=== PATIENT | female | born 1990 | race Caucasian/White ===

== ENCOUNTER 2016-06-20 19:38 | Emergency (ER) | payer MEDICAID ==
--- NOTE | 2016-06-20 22:37 | ER Document Report ---
ED Neck/Back Problem - General Mode of Arrival: Ambulatory Information source: Patient TRAVEL OUTSIDE OF THE [place] IN LAST 30 DAYS: No - HPI Patient complains to provider of: Pain, Lower back Associated symptoms: Other - See above - General Chief Complaint: Low Back Pain Stated Complaint: low back pain Notes: Patient is a 26 year old female who presents to the emergency department complaining of low back pain onset 2 days ago. Patient states that she believes she pulled a muscle when moving a dresser. Patient states the pain began the day after the event and is constant sometimes radiating into her legs. Patient states she has been taking Advil and Tylenol at home with no relief. Patient has a follow up appointment with her PCP on Tuesday. Patient denies difficulty urinating or defecating, and denies . Patient also complains of a rash on her back and chest. PCP: [facility] (JADA MACK) - Related Data Allergies/Adverse Reactions: amoxicillin [Amoxicillin] Allergy (Unknown, Verified 02/08/16 13:03) rash/hives Penicillins Allergy (Unknown, Verified 02/08/16 13:03) rash/hives Past Medical History - General Information source: Patient - Social History Smoking Status: Unknown if Ever Smoked Family History: Reviewed & Not Pertinent Skin Medical History: Reports Hx MRSA Past Surgical History: Reports: Hx CholecystectomyComment Only: Hx Hysterectomy - SERUM HCG NEGATIVE - Immunizations Immunizations up to date: Yes Hx Diphtheria, Pertussis, Tetanus Vaccination: Yes - 04/2013 Review of Systems - Review of Systems Constitutional: No symptoms reported EENT: No symptoms reported Cardiovascular: No symptoms reported Respiratory: No symptoms reported Gastrointestinal: No symptoms reported Genitourinary: No symptoms reported Female Genitourinary: No symptoms reported Musculoskeletal: See HPI, Back pain Skin: See HPI, Rash Hematologic/Lymphatic: No symptoms reported Neurological/Psychological: No symptoms reported -: Yes All other systems reviewed and negative Physical Exam - Vital signs Interpretation: Normal - General General appearance: Appears well, Alert - HEENT Head: Normocephalic, Atraumatic - Respiratory Respiratory status: No respiratory distress Chest status: Nontender Breath sounds: Normal Chest palpation: Normal - Cardiovascular Rhythm: Regular Heart sounds: Normal auscultation Murmur: No - Abdominal Inspection: Normal Distension: No distension Bowel sounds: Normal Tenderness: Nontender Organomegaly: No organomegaly - Extremities General upper extremity: Normal inspection General lower extremity: Normal inspection - Neurological Neuro grossly intact: Yes Cognition: Normal Orientation: AAOx4 Valdez Coma Scale Eye Opening: Spontaneous [place] Coma Scale Verbal: Oriented [place] Coma Scale Motor: Obeys Commands Valdez Coma Scale Total: 15 Speech: Normal - Psychological Associated symptoms: Normal affect, Normal mood - Skin Skin Temperature: Warm Skin Moisture: Dry Skin Color: Normal Skin irregularity: Rash - 3 well circumsiced, round rashes on back, 1 on left chest, with centralized clearing. No secondary infection, no cellulitis Course - Re-evaluation Re-evalutation: 06/21/16 03:32 presents emergency per chief plain low back pain and rash. She said a few days ago she was moving a dresser fell a pull in her low back will Morning with low back pain. She states she's been laying around more than active although she did walk here tonight on her own accord. She denies any numbness tingling weakness loss of bowel or bladder function. Also states she no sore rash on her back. On examination she has no midline tenderness she has paralumbar muscular skeletal tenderness negative bilateral straight leg raise test. Good pulses and perfusion no acute abdominal findings and rash on her back consistent with ringworm. Patient discharged with Robaxin Bactroban cream follow primary care physician and discussed reasons Fredia return sooner (SUNNI ESQUEDA) - Vital Signs Vital signs: Temp Pulse Resp BP Pulse Ox 97.6 F 71 16 120/89 H 96 06/20/16 23:09 06/20/16 23:09 06/20/16 23:09 06/20/16 23:09 06/20/16 23:09 Discharge - Discharge Clinical Impression: low back strain, Ringworm Condition: Stable Disposition: HOME, SELF-CARE Additional Instructions: Low Back Pain Three out of every four people will have an episode of disabling back pain during their lifetime. Most commonly the pain is due to straining of the muscles and ligaments in the low back. Usual treatment includes: (1) Rest on a firm surface. Avoid lying on your stomach. (2) Ice pack the painful area. After a few days, gentle heat may be used intermittently to relax the area, or ice packs can be continued. (3) Medication may be needed -- muscle relaxers and antiinflammatory medicines are commonly used. (4) As the back improves, exercises are prescribed to strengthen the back and abdominal muscles. Your doctor will advise you on the proper care for your back at each stage in your recovery. You may be better in a few days -- or healing may take several weeks. If new symptoms of a "herniated disc" (radiation of pain, numbness, or tingling down the back of the leg or weakness in the leg) occur, you should be re-examined. Further testing may be necessary. Ringworm (Tinea Corporis) You have a fungal infection of the skin, called tinea corporis. This is sometimes called "ringworm." because it tends forms an enlarging ring on the skin. The infection results from exposure to another person or an animal carrying the fungus, but it is only mildly contagious. There can be mild itching , or sometimes no symptoms at all. The infection is usually treated with antifungal cream. This is applied two or three times daily. Healing may take two or three weeks. Occasionally, oral medication is necessary, for example, when the infection if very large, or if fungus involves the scalp or nails. Fingernail or toenail infections are very difficult to eradicate, often requiring many weeks of treatment. Return for re-examination if your symptoms change significantly -- for example, if you develop fever or chills, red streaks, increasing tenderness, swelling, or blisters at the infection site. Prescriptions: Methocarbamol [Robaxin 500 mg Tablet] 500 mg PO BID #12 tablet Mupirocin Calcium [Bactroban 2% Cream 15 gm] 1 applic TP DAILY PRN #1 tube PRN Reason: Referrals: MARCELO CANTRELL MD [Primary Care Provider] - Follow up as needed Stan Attestation: 06/22/16 21:16 i personally performed the services described in the documentation, reviewed the documentation recorded i described in my presence and accurately and completely records my words and actions (SUNNI ESQUEDA) Halimaibniall Documentation - Scribe Written by Stan:: stan Randall, 06/21/16, 0012 acting as scribe for :: Cory
[2016-06-20 23:12] VITALS: BP 120/89
== END 2016-06-20 23:09 | disposition home or self-care (01) ==
LOC: ER 19:38
DX: S39.012A Strain of muscle, fascia and tendon of lower back, initial encounter (principal); X58.XXXA Exposure to other specified factors, initial encounter; B35.9 Dermatophytosis, unspecified; Z88.0 Allergy status to penicillin; Z86.14 Personal history of Methicillin resistant Staphylococcus aureus infection
CPT/HCPCS: 99282

== ENCOUNTER 2017-03-16 18:55 | Emergency (ER) | payer MEDICAID ==
--- NOTE | 2017-03-16 19:58 | ER Document Report ---
ED Medical Screen (RME) - General Chief Complaint: Dizziness Stated Complaint: DIZZINESS,HEADACHE Time Seen by Provider: 03/16/17 19:54 Mode of Arrival: Ambulatory Information source: Patient Notes: Pt is a 27 year old female who presents to the ER today for lightheadedness, headaches, nausea and vomiting. States she hasn't had a menstrual cycle since january. She may be . She hasn't taken any tests. TRAVEL OUTSIDE OF THE [place] IN LAST 30 DAYS: No - Related Data Allergies/Adverse Reactions: amoxicillin [Amoxicillin] Allergy (Unknown, Verified 02/08/16 13:03) rash/hives Penicillins Allergy (Unknown, Verified 02/08/16 13:03) rash/hives Past Medical History - General Information source: Patient Pulmonary Medical History: Denies: Hx Tuberculosis Neurological Medical History: Denies: Hx Seizures Renal/ Medical History: Denies: Hx Peritoneal Dialysis Skin Medical History: Reports Hx MRSA Past Surgical History: Reports: Hx CholecystectomyComment Only: Hx Hysterectomy - SERUM HCG NEGATIVE - Immunizations Immunizations up to date: Yes Hx Diphtheria, Pertussis, Tetanus Vaccination: Yes - 04/2013 Review of Systems - Review of Systems Gastrointestinal: See HPI Neurological/Psychological: See HPI Physical Exam - Vital signs Vitals: Temp Pulse Resp BP Pulse Ox 98.0 F 86 18 137/89 H 96 03/16/17 19:03 03/16/17 19:03 03/16/17 19:03 03/16/17 19:03 03/16/17 19:03 - Notes Notes: General: well appearing, NAD Course - Vital Signs Vital signs: Temp Pulse Resp BP Pulse Ox 98.0 F 86 18 137/89 H 96 03/16/17 19:03 03/16/17 19:03 03/16/17 19:03 03/16/17 19:03 03/16/17 19:03
[2017-03-16 20:46] LABS: ABSOLUTE EOSINOPHILS # (AUTO) 0.2 10^3/uL (0.0-0.6); ABSOLUTE LYMPHOCYTES (AUTO) 2.5 10^3/uL (0.5-4.7); ABSOLUTE MONOCYTES (AUTO) 0.6 10^3/uL (0.1-1.4); BASOPHILS % (AUTO) 0.4 % (0-2); EOSINOPHILS % (AUTO) 1.7 % (0-6); HEMOGLOBIN 12.9 g/dL (12.0-15.5); MEAN CORPUSCULAR HEMOGLOBIN 29.5 pg (27.0-33.4); MEAN CORPUSCULAR HGB CONC 33.1 g/dL (32.0-36.0); MEAN CORPUSCULAR VOLUME 89 fl (80-97); MONOCYTES % (AUTO) 5.2 % (3-13); PLATELET COUNT 255 10^3/uL (150-450); RED BLOOD COUNT 4.39 10^6/uL (3.72-5.28); RED CELL DISTRIBUTION WIDTH 13.8 % (11.5-14.0); SEGMENTED NEUTROPHILS % (AUTO) 70.7 % (42-78); TOTAL CELLS COUNTED % (AUTO) 100 %; WHITE BLOOD COUNT 11.3 10^3/uL (4.0-10.5)
[2017-03-16 20:52] LABS: APPEARANCE,URINE CLOUDY; BILIRUBIN,URINE NEGATIVE (NEGATIVE); COLOR,URINE YELLOW; GLUCOSE, URINE NEGATIVE (NEGATIVE); KETONES,URINE NEGATIVE (NEGATIVE); LEUKOCYTE ESTERASE,URINE TRACE (NEGATIVE); NITRITE,URINE NEGATIVE (NEGATIVE); PROTEIN,URINE NEGATIVE (NEGATIVE); URINE SPECIFIC GRAVITY 1.028
[2017-03-16 21:16] LABS: ALANINE AMINOTRANSFERASE 30 U/L (9-52); ALBUMIN 4.4 g/dL (3.5-5.0); ALKALINE PHOSPHATASE 93 U/L (38-126); ANION GAP 11 (5-19); ASPARTATE AMINO TRANSFERASE 19 U/L (14-36); BILIRUBIN,DIRECT 0.1 mg/dL (0.0-0.4); BILIRUBIN,TOTAL 0.1 mg/dL (0.2-1.3); BLOOD UREA NITROGEN 8 mg/dL (7-20); CALCIUM 10.1 mg/dL (8.4-10.2); CARBON DIOXIDE 27 mmol/L (22-30); CHLORIDE 105 mmol/L (98-107); GLUCOSE 91 mg/dL (75-110); POTASSIUM 3.7 mmol/L (3.6-5.0); TOTAL PROTEIN 7.8 g/dL (6.3-8.2)
[2017-03-16] MEDS ORDERED: ACETAMINOPHEN 325 MG TABLET PO ONE (22:43)
[2017-03-16] MEDS ORDERED: NITROFURANTOIN MONOHYD/M-CRYST 100 MG CAPSULE PO ONE (22:43)
--- NOTE | 2017-03-16 22:44 | ER Document Report ---
HPI - HPI Patient complains to provider of: Abdominal pain, dizziness Onset: Other - 3 days Onset/Duration: Persistent Quality of pain: Achy Pain Level: 4 Context: Patient presents complaining of lower pelvic pain for the past 3 days. Patient reports headache with dizziness as well as nausea and vomiting for the past 2 days. Patient states she is vomited 6 times today. Patient denies any fever, diarrhea or urinary symptoms. Patient does state that she is 2 months late on her menstrual cycle. Associated Symptoms: Headache, Nausea, Vomiting, Other - Abdominal pain. denies : Nonproductive cough, Productive cough, Fever Exacerbated by: Denies Relieved by: Denies Similar symptoms previously: No Recently seen / treated by doctor: No - ROS ROS below otherwise negative: Yes Systems Reviewed and Negative: Yes All other systems reviewed and negative - CONSTITUTIONAL Constitutional: DENIES: Fever, Chills - NEURO Neurology: REPORTS: Headache, Dizzinesss / Vertigo - RESPIRATORY Respiratory: DENIES: Coughing - GASTROINTESTINAL Gastrointestinal: REPORTS: Abdominal Pain, Nausea, Patient vomiting. DENIES: Diarrhea - URINARY Urinary: DENIES: Dysuria, Urgency, Frequency - REPRODUCTIVE Reproductive: DENIES: : - MUSCULOSKELETAL Musculoskeletal: DENIES: Back Pain - DERM Skin Color: Normal Skin Problems: None Past Medical History - General Information source: Patient Last Menstrual Period: 2 months ago - Social History Smoking Status: Never Smoker Frequency of alcohol use: None Drug Abuse: None Occupation: None Lives with: Family Family History: Reviewed & Not Pertinent - Medical History Medical History: Negative Pulmonary Medical History: Denies: Hx Tuberculosis Neurological Medical History: Denies: Hx Seizures Renal/ Medical History: Denies: Hx Peritoneal Dialysis Skin Medical History: Reports Hx MRSA Past Surgical History: Reports: Hx Cholecystectomy - Immunizations Immunizations up to date: Yes Hx Diphtheria, Pertussis, Tetanus Vaccination: Yes - 04/2013 Vertical Provider Document - CONSTITUTIONAL Agree With Documented VS: Yes Exam Limitations: No Limitations General Appearance: WD/WN, No Apparent Distress - INFECTION CONTROL TRAVEL OUTSIDE OF THE [place] IN LAST 30 DAYS: No - HEENT HEENT: Atraumatic, Normocephalic - NECK Neck: Normal Inspection, Supple - RESPIRATORY Respiratory: Breath Sounds Normal, No Respiratory Distress, Chest Non-Tender O2 Sat by Pulse Oximetry: 96 - CARDIOVASCULAR Cardiovascular: Regular Rate, Regular Rhythm, No Murmur - GI/ABDOMEN Gastrointestinal: Abdomen Soft, Abdomen Tender - lateral lower pelvic area - BACK Back: Normal Inspection. negative: CVA Tenderness-Right, CVA Tenderness-Left - MUSCULOSKELETAL/EXTREMETIES Musculoskeletal/Extremeties: YUE NARAYAN - NEURO Level of Consciousness: Awake, Alert, Appropriate Motor/Sensory: No Motor Deficit - DERM Integumentary: Warm, Dry, No Rash Course - Re-evaluation Re-evalutation: 03/17/17 Abdomen soft, no guarding. Patient without any emesis during ER stay. Patient nontoxic in appearance. Patient very happy with diagnosis. Discussed worsening symptoms that patient should return immediately for. Patient verbalized understanding and agrees with plan of care. - Vital Signs Vital signs: Temp Pulse Resp BP Pulse Ox 98.0 F 86 18 137/89 H 96 03/16/17 19:03 03/16/17 19:03 03/16/17 19:03 03/16/17 19:03 03/16/17 19:03 - Laboratory Result Diagrams: 03/16/17 20:28 03/16/17 20:28 Laboratory results interpreted by me: 03/16/17 03/16/17 03/16/17 20:15 20:28 20:28 WBC 11.3 H Total Bilirubin 0.1 L Serum HCG, Qual Urine Urobilinogen 4.0 H Ur Leukocyte Esterase TRACE H 03/16/17 20:28 WBC Total Bilirubin Serum HCG, Qual POSITIVE H Urine Urobilinogen Ur Leukocyte Esterase 03/17/17 00:37 Labs- Entire Visit 03/16/17 03/16/17 03/16/17 20:15 20:28 20:28 WBC 11.3 H RBC 4.39 Hgb 12.9 Hct 39.0 MCV 89 MCH 29.5 MCHC 33.1 RDW 13.8 Plt Count 255 Seg Neutrophils % 70.7 Lymphocytes % 22.0 Monocytes % 5.2 Eosinophils % 1.7 Basophils % 0.4 Absolute Neutrophils 8.0 Absolute Lymphocytes 2.5 Absolute Monocytes 0.6 Absolute Eosinophils 0.2 Absolute Basophils 0.0 Sodium 143.0 Potassium 3.7 Chloride 105 Carbon Dioxide 27 Anion Gap 11 BUN 8 Creatinine 0.77 Est GFR ( Amer) > 60 Est GFR (Non-Af Amer) > 60 Glucose 91 Calcium 10.1 Total Bilirubin 0.1 L Direct Bilirubin 0.1 Neonat Total Bilirubin Not Reportable Neonat Direct Bilirubin Not Reportable Neonat Indirect Bili Not Reportable AST 19 ALT 30 Alkaline Phosphatase 93 Total Protein 7.8 Albumin 4.4 Serum HCG, Qual Beta HCG, Quant Total Beta HCG Urine Color YELLOW Urine Appearance CLOUDY Urine pH 5.0 Ur Specific Marion 1.028 Urine Protein NEGATIVE Urine Glucose (UA) NEGATIVE Urine Ketones NEGATIVE Urine Blood NEGATIVE Urine Nitrite NEGATIVE Urine Bilirubin NEGATIVE Urine Urobilinogen 4.0 H Ur Leukocyte Esterase TRACE H Urine WBC (Auto) 5 Urine RBC (Auto) 7 Urine Bacteria (Auto) 3+ Squamous Epi Cells Auto 16 Urine Mucus (Auto) FEW Urine Ascorbic Acid NEGATIVE 03/16/17 03/16/17 20:28 20:28 WBC RBC Hgb Hct MCV MCH MCHC RDW Plt Count Seg Neutrophils % Lymphocytes % Monocytes % Eosinophils % Basophils % Absolute Neutrophils Absolute Lymphocytes Absolute Monocytes Absolute Eosinophils Absolute Basophils Sodium Potassium Chloride Carbon Dioxide Anion Gap BUN Creatinine Est GFR ( Amer) Est GFR (Non-Af Amer) Glucose Calcium Total Bilirubin Direct Bilirubin Neonat Total Bilirubin Neonat Direct Bilirubin Neonat Indirect Bili AST ALT Alkaline Phosphatase Total Protein Albumin Serum HCG, Qual POSITIVE H Beta HCG, Quant 43748.00 H Total Beta HCG POSITIVE Urine Color Urine Appearance Urine pH Ur Specific Marion Urine Protein Urine Glucose (UA) Urine Ketones Urine Blood Urine Nitrite Urine Bilirubin Urine Urobilinogen Ur Leukocyte Esterase Urine WBC (Auto) Urine RBC (Auto) Urine Bacteria (Auto) Squamous Epi Cells Auto Urine Mucus (Auto) Urine Ascorbic Acid - Diagnostic Test Radiology reviewed: Reports reviewed Discharge - Discharge Clinical Impression: Intrauterine UTI (urinary tract infection) Qualifiers: Urinary tract infection type: site unspecified Hematuria presence: without hematuria Qualified Code(s): N39.0 - Urinary tract infection, site not specified Condition: Stable Disposition: HOME, SELF-CARE Instructions: Acetaminophen, Nitrofurantoin ([facility]), Pelvic Pain in ( [facility]), Urinary Tract Infection ([facility]) Additional Instructions: Return immediately for any new or worsening symptoms Followup with your primary care provider, call tomorrow to make a followup appointment Follow-up with your [employer] provider to establish care Urine culture is pending, we will call if you need any different treatment Prescriptions: Nitrofurantoin/Nitrofuran Mac [Macrobid 100 mg Capsule] 100 mg PO BID #10 capsule Referrals: [facility] [Provider Group] - Follow up tomorrow
--- NOTE | 2017-03-17 00:27 | RADIOLOGY REPORT (SQ) ---
EXAM DESCRIPTION: U/S OB TRANSVAGINAL W/O DOP COMPLETED DATE/TIME: 03/16/2017 11:24 pm REASON FOR STUDY: pelvic pain COMPARISON: None. TECHNIQUE: Transvaginal grayscale images acquired of the pelvis. Additional selected spectral and co tianna Doppler images recorded. All images stored on PACs. bHCG: Not available. LIMITATIONS: None. FINDINGS: FETUS: Living intrauterine . EGA: 7 weeks 2 days ENID: 10/31/2017 FHR: 135 beats per minute. SUBCHORIONIC BLEED: No. SIZE OF BLEED: Not applicable. UTERUS: Measures 9.6 x 7.1 x 5.7 cm. CERVICAL LENGTH: 2.6 cm Closed. RIGHT ADNEXA: The right ovary measures 4.8 x 4.5 x 3.5 cm. Flow by Doppler was shown to the right ov tr. There is a 4.3 cm cyst. LEFT ADNEXA: The left ovary was not visualized. FREE FLUID: None. IMPRESSION: LIVING INTRAUTERINE . EGA 7 WEEKS 2 DAYS. 4.3 CM RIGHT OVARIAN CYST. NONVISUALIZED LEFT OVARY. Trimester of : First - 0 to 13 weeks. TECHNICAL DOCUMENTATION: JOB ID: [id number] 2010 [email or web address]- All Rights Reserved
[2017-03-17 00:58] VITALS: BP 118/76
== END 2017-03-17 00:59 | disposition home or self-care (01) ==
LOC: ER 18:55
DX: O23.40 Unspecified infection of urinary tract in pregnancy, unspecified trimester (principal); O21.9 Vomiting of pregnancy, unspecified; O26.899 Other specified pregnancy related conditions, unspecified trimester; R10.2 Pelvic and perineal pain; R51 Headache; R42 Dizziness and giddiness; Z3A.00 Weeks of gestation of pregnancy not specified
CPT/HCPCS: 99284; 36415; 87086; 84702; 84703; 85025; 87088; 80053; 81001; 87186; 76817; J3490 ×2; J8499

== ENCOUNTER 2017-08-09 11:30 | Outpatient (CLI) | payer MEDICAID ==
[2017-08-09 12:51] LABS: APPEARANCE,URINE CLOUDY; BILIRUBIN,URINE SMALL (NEGATIVE); COLOR,URINE AMBER; GLUCOSE, URINE NEGATIVE (NEGATIVE); KETONES,URINE 20 mg/dL (NEGATIVE); LEUKOCYTE ESTERASE,URINE SMALL (NEGATIVE); NITRITE,URINE NEGATIVE (NEGATIVE); PROTEIN,URINE 100 mg/dL (NEGATIVE); URINE SPECIFIC GRAVITY 1.025
--- NOTE | 2017-08-09 13:23 | RADIOLOGY REPORT (SQ) ---
EXAM DESCRIPTION: U/S OB LIMITED COMPLETED DATE/TIME: 08/09/2017 1:14 pm REASON FOR STUDY: cervical length COMPARISON: None. TECHNIQUE: Limited transabdominal grayscale ultrasound for evaluation of specific requested obstetri vadim parameters. LIMITATIONS: None. FINDINGS: CERVICAL LENGTH: 3.5 Closed. FHR: 144 beats per minute. PRESENTATION: Cephalic. OTHER: No other significant findings. IMPRESSION: LIMITED OBSTETRICAL ULTRASOUND WITH MEASURED PARAMETERS DELINEATED ABOVE. Trimester of : Third trimester - 28 weeks to delivery. TECHNICAL DOCUMENTATION: JOB ID: [id number] [employer]- All Rights Reserved Reading location - IP/workstation name: [email or web address]
== END 2017-08-09 13:30 | disposition home or self-care (01) ==
LOC: LC 11:30
PROVIDERS: ATTEND Obstetrics & Gynecology
PROC: 4A1HXCZ Monitoring of Products of Conception, Cardiac Rate, External Approach (ICD-10-PCS; principal; 2017-08-09)
DX: Z34.93 Encounter for supervision of normal pregnancy, unspecified, third trimester (principal)
CPT/HCPCS: 76815; 81001

== ENCOUNTER 2017-09-20 14:35 | Outpatient (CLI) | payer MEDICAID ==
--- NOTE | 2017-09-20 16:05 | Non Stress Test Report ---
Non Stress Test Datetime Report Generated by CPN: 09/20/2017 16:05 DEMOGRAPHIC EGA NST: 34.5 INDICATION Indication for Study: Ordered by Provider Indication for Study (NST) Other: gdm MONITORING Monitor Explained: Monitor Explained; Test Explained; Patient Verbalized Understanding Time on Monitor: 09/20/2017 15:00 Time off Monitor: 09/20/2017 15:56 NST Duration: 56 NST INTERVENTIONS NST Interventions: PO Hydration; Reposition Patient Physician Notified NST: P Mercado CNM BABY A: [id number] BABY A Movement : Present Contraction Frequency : 0 FHR Baseline : 130 Accelerations : 15X15 Decelerations : None Variability : Moderate 6-25bpm NST Review: Meets Criteria for Reactive NST NST Review and Verified By : Helder Fournier RN NST Results: Reactive NST REPORT Report Trigger: Send Report
== END 2017-09-20 16:06 | disposition home or self-care (01) ==
LOC: LC 14:35
PROVIDERS: ATTEND Obstetrics & Gynecology
PROC: 4A1HXCZ Monitoring of Products of Conception, Cardiac Rate, External Approach (ICD-10-PCS; principal; 2017-09-20)
DX: O24.419 Gestational diabetes mellitus in pregnancy, unspecified control (principal); Z3A.34 34 weeks gestation of pregnancy
CPT/HCPCS: 59025

== ENCOUNTER 2017-09-29 14:17 | Outpatient (CLI) | payer MEDICAID ==
--- NOTE | 2017-09-29 15:06 | Non Stress Test Report ---
Non Stress Test Datetime Report Generated by CPN: 09/29/2017 15:06 DEMOGRAPHIC EGA NST: 36.0 INDICATION Indication for Study: Diabetes Mellitus VITAL SIGNS Temperature - NST: 97.8 Pulse - NST: 69 RESP - NST: 16 NBPSYS NST: 132 NBPDIA NST: 74 MONITORING Monitor Explained: Monitor Explained; Test Explained; Patient Verbalized Understanding Time on Monitor: 09/29/2017 14:39 Time off Monitor: 09/29/2017 14:57 NST Duration: 18 NST INTERVENTIONS NST Interventions: PO Hydration Physician Notified NST: A. Monet, CNM BABY A: [id number] BABY A Movement : Present Contraction Frequency : None FHR Baseline : 140 Accelerations : 15X15 Decelerations : None Variability : Moderate 6-25bpm NST Review: Meets Criteria for Reactive NST NST Review and Verified By : JAYNE VOSS RN NST Results: Reactive NST REPORT Report Trigger: Send Report
== END 2017-09-29 15:03 | disposition home or self-care (01) ==
LOC: LC 14:17
PROVIDERS: ATTEND Student in an Organized Health Care Education/Training Program
PROC: 4A1HXCZ Monitoring of Products of Conception, Cardiac Rate, External Approach (ICD-10-PCS; principal; 2017-09-29)
DX: O47.03 False labor before 37 completed weeks of gestation, third trimester (principal); Z3A.36 36 weeks gestation of pregnancy
CPT/HCPCS: 59025

== ENCOUNTER 2017-10-14 14:35 | Outpatient (CLI) | payer MEDICAID ==
--- NOTE | 2017-10-14 16:16 | Non Stress Test Report ---
Non Stress Test Datetime Report Generated by CPN: 10/14/2017 16:15 DEMOGRAPHIC EGA NST: 38.1 INDICATION Indication for Study: Other Indication for Study (NST) Other: repeat NST VITAL SIGNS Temperature - NST: 98.6 Pulse - NST: 82 RESP - NST: 14 NBPSYS NST: 113 NBPDIA NST: 62 MONITORING Monitor Explained: Monitor Explained; Test Explained; Patient Verbalized Understanding Time on Monitor: 10/14/2017 14:49 Time off Monitor: 10/14/2017 16:04 NST Duration: 75 NST INTERVENTIONS NST Interventions: PO Hydration Physician Notified NST: K. Solares, CNM BABY A: [id number] BABY A Movement : Present Contraction Frequency : 0 FHR Baseline : 135 Accelerations : 15X15 Decelerations : None Variability : Moderate 6-25bpm NST Review: Meets Criteria for Reactive NST NST Review and Verified By : Lb Castle RN NST Results: Reactive NST REPORT Report Trigger: Send Report
== END 2017-10-14 16:05 | disposition home or self-care (01) ==
LOC: LC 14:35
PROVIDERS: ATTEND Obstetrics & Gynecology Gynecology
PROC: 4A1HXCZ Monitoring of Products of Conception, Cardiac Rate, External Approach (ICD-10-PCS; principal; 2017-10-14)
DX: Z34.93 Encounter for supervision of normal pregnancy, unspecified, third trimester (principal)
CPT/HCPCS: 59025

== ENCOUNTER 2017-10-23 06:06 | Inpatient (IN) | payer MEDICAID ==
[2017-10-23] MEDS ORDERED: OXYTOCIN IV PRN (07:38)
[2017-10-23] MEDS ORDERED: NORMAL SALINE IV PRN (07:38)
[2017-10-23 07:42] LABS: APPEARANCE,URINE CLOUDY; BILIRUBIN,URINE NEGATIVE (NEGATIVE); COLOR,URINE AMBER; GLUCOSE, URINE NEGATIVE (NEGATIVE); KETONES,URINE NEGATIVE (NEGATIVE); LEUKOCYTE ESTERASE,URINE MODERATE (NEGATIVE); NITRITE,URINE NEGATIVE (NEGATIVE); PROTEIN,URINE 30 mg/dL (NEGATIVE); URINE SPECIFIC GRAVITY 1.016
--- NOTE | 2017-10-23 07:46 | Admission Physical ---
Datetime Report Generated by CPN: 10/23/2017 07:46 CURRENT ADMISSION Chief Complaint: Suspected Ruptured Membranes Indication for Induction- Other: Term spontaneous rupture of membranes Admit Impression : Ruptured Membranes Admit Plan: Admit to Unit ALLERGIES Medication Allergies: Yes Medication Allergies: Penicillins/rash/hives (10/23/2017); amoxicillin/rash/hives (10/23/2017) Latex: No Latex Allergies Food Allergies: NONE Environmental Allergies: NONE OBSTETRICAL HISTORY EDC: 10/27/2017 00:00 : 6 Para: 5 Term: 5 : 0 SAB: 0 IAB: 0 Ectopic: 0 Livin Cesareans: 0 VBACs: 0 Multiple Births: 0 Gestational Diabetes: Yes Incompetent Cervix: No Infertility: No IUGR: No Macrosomia: No Current Procedures: Ultrasound; NST Obstetrical History Comments: G1:female G2:female G3:female G4:male G5:female G6: current (GDM) MEDICAL HISTORY Diabetes: Yes Diabetes Type: Gestational Diabetes Hosp/Surgery: Yes Abnormal Pap Smear: Yes INFECTIOUS HISTORY Chlamydia: Yes HPV: Yes Infectious History Comments: chlamydia 2006, PHYSICAL EXAM General: Normal HEENT: Normal Neurologic: Normal Thyroid: Normal Heart: Normal Lungs: Normal Breast: Normal Back: Normal Abdomen: Normal Genitourinary Exam: Normal Extremities: Normal DTRs: Normal Pelvic Type: Adequate Vital Signs: Reviewed; Within Normal Limits VAGINAL EXAM Dilatation: 1 Effacement: 50 Station: -3 Contraction Comments: Rare MEMBRANES Membranes: Ruptured Amniotic Fluid Color: Bloody FETUS A EGA: 39.3 Monitoring: External US FHR- Baseline: 140 Variability: Moderate 6-25bpm Accelerations: 10X10 Decelerations: None FHR Category: Category I Estimated Weight (gm): 3500 Presentation: Vertex Admit Comment: Positive AmnioSure Admit - Pitocin, expect vaginal delivery INFORMED CONSENT Signature: with User ID: BPrice : I personally evaluated and examined the patient in conjunction with the MLP and agree with the assessment, treatment plan and disposition.
[2017-10-23 07:58] LABS: URINE AMPHETAMINES SCREEN NEGATIVE; URINE BARBITURATES SCREEN NEGATIVE; URINE BENZODIAZEPINES SCREEN NEGATIVE; URINE COCAINE SCREEN NEGATIVE; URINE MARIJUANA (THC) SCREEN NEGATIVE; URINE METHADONE SCREEN NEGATIVE; URINE PHENCYCLIDINE SCREEN NEGATIVE
[2017-10-23 08:38] LABS: ABSOLUTE LYMPHOCYTES (AUTO) 1.2 10^3/uL (0.5-4.7); ABSOLUTE MONOCYTES (AUTO) 0.4 10^3/uL (0.1-1.4); ABSOLUTE NEUT (AUTO) 7.3 10^3/uL (1.7-8.2); BASOPHILS % (AUTO) 0.1 % (0-2); EOSINOPHILS % (AUTO) 0.3 % (0-6); HEMATOCRIT 35.1 % (36.0-47.0); HEMOGLOBIN 11.9 g/dL (12.0-15.5); LYMPHOCYTES % (AUTO) 13.6 % (13-45); MEAN CORPUSCULAR HEMOGLOBIN 31.1 pg (27.0-33.4); MEAN CORPUSCULAR VOLUME 92 fl (80-97); MONOCYTES % (AUTO) 4.7 % (3-13); PLATELET COUNT 163 10^3/uL (150-450); RED BLOOD COUNT 3.84 10^6/uL (3.72-5.28); RED CELL DISTRIBUTION WIDTH 13.7 % (11.5-14.0); SEGMENTED NEUTROPHILS % (AUTO) 81.3 % (42-78); TOTAL CELLS COUNTED % (AUTO) 100 %
[2017-10-23] MEDS ORDERED: OXYTOCIN/NORMAL SALINE 20 UNIT/1,000 ML RTUINJ ONE (09:10)
[2017-10-23] MEDS ORDERED: RINGERS SOLUTION,LACTATED 300 ML IV ONE (09:22)
[2017-10-23] MEDS ORDERED: RINGERS SOLUTION,LACTATED 1,000 ML IV PRN (09:22)
[2017-10-23] MEDS ORDERED: OXYTOCIN/NORMAL SALINE 20 UNIT/1,000 ML RTUINJ IV PRN ×3 (09:22→16:06)
[2017-10-23] MEDS ORDERED: MISOPROSTOL 0.2 MG TABLET ONE (13:52)
[2017-10-23] MEDS ORDERED: LIDOCAINE 1% INJ-PF (10 MG/ML) 30 ML SDV ONE (13:53)
[2017-10-23] MEDS ORDERED: DIPHENHYDRAMINE HCL 25 MG CAPSULE PO PRN (16:06)
[2017-10-23] MEDS ORDERED: MEASLES,MUMPS&RUBELLA VACC/PF 0.5 ML VIAL SUBCUT PRN (16:06)
[2017-10-23] MEDS ORDERED: PROMETHAZINE HCL 25 MG SUPP.RECT PR PRN (16:06)
[2017-10-23] MEDS ORDERED: PSEUDOEPHEDRINE HCL 30 MG TABLET PO PRN (16:06)
[2017-10-23] MEDS ORDERED: MAGNESIUM HYDROXIDE SUSP 30 ML UDCUP PO PRN (16:06)
[2017-10-23] MEDS ORDERED: PROMETHAZINE HCL 25 MG TABLET PO PRN (16:06)
[2017-10-23] MEDS ORDERED: ACETAMINOPHEN WITH CODEINE #3 TABLET PO PRN ×2 (16:06)
[2017-10-23] MEDS ORDERED: DIBUCAINE 1% OINTMENT 28 GM TP PRN (16:06)
[2017-10-23] MEDS ORDERED: NA PHOS,M-B/NA PHOS,DI-BA (ADULT) 133 ML ENEMA PR PRN (16:06)
[2017-10-23] MEDS ORDERED: PROMETHAZINE HCL INJ 25 MG/1 ML VIAL IV PRN (16:06)
[2017-10-23] MEDS ORDERED: ZOLPIDEM TARTRATE 5 MG TABLET PO PRN (16:06)
[2017-10-23] MEDS ORDERED: ACETAMINOPHEN 650 MG SUPP.RECT PR PRN (16:06)
[2017-10-23] MEDS ORDERED: GLYCERIN/WITCH HAZEL LEAF 1 EACH MED..PAD TP PRN (16:06)
[2017-10-23] MEDS ORDERED: BENZOCAINE/MENTHOL AEROSOL SPRAY 56 ML TOP PRN (16:06)
[2017-10-23] MEDS ORDERED: DIPH/PERTUSS(ACELL)/TETANUS VAC/PF 0.5 ML SYR (>=10YO) IM PRN (16:06)
[2017-10-23] MEDS: DOCUSATE SODIUM 100 MG CAPSULE PO SCH (18:13)
[2017-10-23] MEDS: FERROUS SULFATE 325 MG TABLET PO SCH (18:13)
--- NOTE | 2017-10-23 18:42 | Delivery Summary ---
Del Sum A-C Datetime Report Generated by CPN: 10/23/2017 18:42 DELIVERY PERSONNEL DELIVERY PERSONNEL: [id number] Delivery Doctor:: Maria Isabel Gonzalez MD Labor and Delivery Nurse:: Jasmine Washington RNclinical resource manager Nurse:: Niru Vargas RN Nursery Nurse:: Mena Staton RN Nursery Nurse:: Susi Hickman RN Environmental Studies Department Chair/LPN PRIVATE DUTY: Karen Arango, ST MATERNAL INFORMATION Delivery Anesthesia: None Medications After Delivery: Pitocin Drip 20 Units/1000ml NSS Estimated Blood Loss (ml): 200 Maternal Complications: None LABOR SUMMARY EDC: 10/27/2017 00:00 No. Babies in Womb: 1 Attempted: No Labor Anesthesia: None LABOR INFORMATION Reason for Induction: Premature Rupture of Membranes Onset of Labor: 10/23/2017 13:32 Complete Dilatation: 10/23/2017 15:12 Oxytocin: Induction Group B Beta Strep: Negative Antibiotics # of Doses: n/a Antibiotics Time of Last Dose: n/a Steroids Given: None Reason Steroids Not Administered: Not Applicable MEMBRANES Membranes Rupture Method: Spontaneous Rupture of Membranes: 10/23/2017 05:00 Length of Rupture (hr): 10.27 Amniotic Fluid Color: Bloody Amniotic Fluid Amount: Moderate Amniotic Fluid Odor: Normal STAGES OF LABOR Stage 1 hr: 1 Stage 1 min: 40 Stage 2 hr: 0 Stage 2 min: 4 Stage 3 hr: 0 Stage 3 min: 3 Total Time in Labor hr: 1 Total Time in Labor min: 47 VAGINAL DELIVERY Episiotomy: None Laceration #1: None Laceration Extension #1: N/A Laceration Repair: Not Applicable CSECTION DELIVERY Primary Indication: N/A Secondary Indication: N/A BABY A INFORMATION Infant Delivery Date/Time: 10/23/2017 15:16 Method of Delivery: Vaginal Born in Route : No : N/A Forceps: N/A Vacuum Extraction: N/A Shoulder Dystocia : No PRESENTATION/POSITION BABY A Presentation: Cephalic Cephalic Presentation: Vertex Vertex Position: Right Occipital Anterior Breech Presentation: N/A PLACENTA INFORMATION BABY A Placenta Delivery Time : 10/23/2017 15:19 Placenta Method of Delivery: Spontaneous Placenta Status: Delivered SCORES BABY A Heart Rate 1 min: >100 bpm Resp Effort 1 min: Good Cry Reflex Irritability 1 min: Cough or Sneeze or Pulls Away Muscle Tone 1 min: Active Motion Color 1 min: Body [place], Extremities Blue Resuscitation Effort 1 min: Tactile Stimulation SCORE 1 MIN: 9 Heart Rate 5 min: >100 bpm Resp Effort 5 min: Good Cry Reflex Irritability 5 min: Cough or Sneeze or Pulls Away Muscle Tone 5 min: Active Motion Color 5 min: Body [place], Extremities Blue Resuscitation Effort 5 min: Tactile Stimulation SCORE 5 MIN: 9 INFORMATION BABY A Gestational Age at Delivery: 39.3 Gestational Status: Full Term- 39- 40.6 Weeks Infant Outcome : Liveborn Infant Condition : Stable Infant Sex: Male IDENTIFICATION BABY A Verification Date/Time: 10/23/2017 16:06 ID Band Number: [id number] Mother's Name Verified: Yes RN Verifying : Juanis Chavez, RN/ARomel Jun RN CORD INFORMATION BABY A No. Cord Vessels: 3 Nuchal Cord : N/A Cord Blood Taken: Yes-For Storage (Mom's Blood type +) Infant Suction: Mouth ASSESSMENT BABY A Infant Complications: None Physical Findings at Delivery: Within Normal Limits Respirations: Appears Normal Skin to Skin: Yes Chief Nursing Officer/ALS Called : No Care By: Hazel Staton RN Transferred To: Remains with Mother BABY B INFORMATION : N/A SIGNATURES Signature: with User ID: [email or web address] : I was personally available for consultation and serving as supervising physician for the MLP. : I personally evaluated and examined the patient in conjunction with the MLP and agree with the assessment, treatment plan and disposition.
[2017-10-23] MEDS: IBUPROFEN 800 MG TABLET PO SCH (21:57)
[2017-10-23] MEDS: FAMOTIDINE 20 MG TABLET PO SCH (21:58)
[2017-10-24 07:07] LABS: HEMATOCRIT 32.7 % (36.0-47.0); HEMOGLOBIN 11.2 g/dL (12.0-15.5); MEAN CORPUSCULAR HEMOGLOBIN 31.2 pg (27.0-33.4); MEAN CORPUSCULAR HGB CONC 34.1 g/dL (32.0-36.0); MEAN CORPUSCULAR VOLUME 92 fl (80-97); PLATELET COUNT 131 10^3/uL (150-450); RED BLOOD COUNT 3.57 10^6/uL (3.72-5.28); RED CELL DISTRIBUTION WIDTH 13.8 % (11.5-14.0); WHITE BLOOD COUNT 9.8 10^3/uL (4.0-10.5)
[2017-10-24] MEDS: IBUPROFEN 800 MG TABLET PO SCH ×3 (07:47→21:27)
[2017-10-24] MEDS: FAMOTIDINE 20 MG TABLET PO SCH ×2 (10:10→21:27)
[2017-10-24] MEDS: DOCUSATE SODIUM 100 MG CAPSULE PO SCH ×2 (10:10→18:06)
[2017-10-24] MEDS: FERROUS SULFATE 325 MG TABLET PO SCH ×2 (10:11→18:06)
[2017-10-24] MEDS: PRENATAL VITAMIN W DHA CAPSULE PO SCH (10:11)
[2017-10-24] MEDS: SENNOSIDES/DOCUSATE 8.6-50 MG 1 EACH TABLET PO SCH (10:11)
--- NOTE | 2017-10-24 14:47 | PDOC PROGRESS REPORT ---
Subjective-OB Progress Note for:: 10/24/17 Subjective: Doing well, no c/o, , Physical Exam (OB) Vital Signs: Temp Pulse Resp BP Pulse Ox 97.8 F 62 16 127/78 H 97 10/24/17 08:28 10/24/17 08:28 10/24/17 08:28 10/24/17 08:28 10/24/17 08:28 Intake & Output 10/23/17 10/24/17 10/25/17 06:59 06:59 06:59 Intake Total 690 Balance 690 Weight 119 kg - PIH/Pre-Eclampsia Clonus: Negative Headache: Absent Epigastric Pain: No Visual Changes: No - Lochia Lochia Amount: Small 10-25 ml Lochia Color: Rubra/Red - Abdomen Description: Soft, Round Hernia Present: No Fundal Description: Firm, Midline Fundal Height: u/u - u/2 Objective-Diagnostic Laboratory: 10/24/17 06:34 10/24/17 06:34 WBC 9.8 RBC 3.57 L Hgb 11.2 L Hct 32.7 L MCV 92 MCH 31.2 MCHC 34.1 RDW 13.8 Plt Count 131 L Assessment and Plan(PN) - Assessment and Plan (1) Gestational diabetes Qualifiers: Gestational diabetes mellitus control: oral hypoglycemic-controlled Trimester: second trimester Qualified Code(s): O24.415 - Gestational diabetes mellitus in , controlled by oral hypoglycemic drugs Is this a current diagnosis for this admission?: Yes - Time Spent with Patient Time with patient: Less than 15 minutes Medications reviewed and adjusted accordingly: Yes - Disposition Anticipated Discharge: Home Within: within 24 hours
[2017-10-25] MEDS: IBUPROFEN 800 MG TABLET PO SCH ×2 (05:21→13:27)
[2017-10-25] MEDS: DOCUSATE SODIUM 100 MG CAPSULE PO SCH (09:01)
[2017-10-25] MEDS: FAMOTIDINE 20 MG TABLET PO SCH (09:01)
[2017-10-25] MEDS: SENNOSIDES/DOCUSATE 8.6-50 MG 1 EACH TABLET PO SCH (09:02)
[2017-10-25] MEDS: PRENATAL VITAMIN W DHA CAPSULE PO SCH (09:02)
[2017-10-25] MEDS: FERROUS SULFATE 325 MG TABLET PO SCH (09:02)
[2017-10-25 09:20] VITALS: BP 120/69
[2017-10-25] MEDS ORDERED: MEDROXYPROGESTERONE ACET INJ 150 MG/1 ML VIAL IM ONE (13:15)
--- NOTE | 2017-10-25 13:15 | PDOC DISCHARGE SUMMARY ---
Final Diagnosis Discharge Date: 10/25/17 - Final Diagnosis (1) Delivery normal Is this a current diagnosis for this admission?: Yes (2) Gestational diabetes Is this a current diagnosis for this admission?: Yes Discharge Data - Discharge Medication Prescriptions: Ibuprofen [Motrin 800 mg Tablet] 800 mg PO Q8HP PRN #20 tablet PRN Reason: Abdominal Cramping Home Medications: Vits96/Iron Fum/Folic [ Tablet] 1 each PO DAILY 04/20/13 Ibuprofen [Motrin 800 mg Tablet] 800 mg PO Q8HP PRN #20 tablet 10/25/17 Reason(s) for Admission: Onset of Labor Procedures: Ultrasound Intrapartum Procedure(s): Spontaneous Vaginal Delivery - Diagnosis Test Laboratory: Temp Pulse Resp BP Pulse Ox 98.1 F 70 16 120/69 99 10/25/17 08:36 10/25/17 08:36 10/25/17 08:36 10/25/17 08:36 10/25/17 08:36 10/23/17 10/23/17 10/24/17 07:09 08:04 06:34 RBC 3.84 3.57 L Hgb 11.9 L 11.2 L Hct 35.1 L 32.7 L Urine Opiates Screen NEGATIVE - Discharge information/Instructions Discharge Activity: Activity As Tolerated, Balance Activity w/Rest, No Lifting Over 10 Pounds, Pelvic Rest, No tub bath, Walk Frequently Discharge Diet: As Tolerated, Regular Disposition: HOME, SELF-CARE Follow up with: [facility] in: 4, Weeks
== END 2017-10-25 15:25 | disposition home or self-care (01) | DRG 775 ==
LOC: LC 06:06 → LR 07:48 → 2S 17:45
PROVIDERS: ADMIT Obstetrics & Gynecology; ATTEND Obstetrics & Gynecology
PROC: 10E0XZZ Delivery of Products of Conception, External Approach (ICD-10-PCS; principal; 2017-10-23)
PROC: 4A1HXCZ Monitoring of Products of Conception, Cardiac Rate, External Approach (ICD-10-PCS; 2017-10-23)
DX: O24.425 Gestational diabetes mellitus in childbirth, controlled by oral hypoglycemic drugs (principal); Z37.0 Single live birth; Z88.0 Allergy status to penicillin; Z3A.39 39 weeks gestation of pregnancy
CPT/HCPCS: 36415; 80307; 81005; 84112; 85025; 85027; 86592; 86850; 86900; 86901; J1050; J2590; J3490

== ENCOUNTER 2018-09-07 00:41 | Emergency (ER) | payer MEDICAID ==
[2018-09-07 01:47] LABS: ABSOLUTE EOSINOPHILS # (AUTO) 0.1 10^3/uL (0.0-0.6); ABSOLUTE LYMPHOCYTES (AUTO) 2.3 10^3/uL (0.5-4.7); ABSOLUTE MONOCYTES (AUTO) 0.6 10^3/uL (0.1-1.4); ABSOLUTE NEUT (AUTO) 6.7 10^3/uL (1.7-8.2); BASOPHILS % (AUTO) 0.5 % (0-2); EOSINOPHILS % (AUTO) 0.9 % (0-6); HEMATOCRIT 38.3 % (36.0-47.0); HEMOGLOBIN 12.7 g/dL (12.0-15.5); LYMPHOCYTES % (AUTO) 23.6 % (13-45); MEAN CORPUSCULAR HEMOGLOBIN 29.1 pg (27.0-33.4); MEAN CORPUSCULAR HGB CONC 33.3 g/dL (32.0-36.0); MEAN CORPUSCULAR VOLUME 87 fl (80-97); MONOCYTES % (AUTO) 5.8 % (3-13); PLATELET COUNT 221 10^3/uL (150-450); RED BLOOD COUNT 4.38 10^6/uL (3.72-5.28); RED CELL DISTRIBUTION WIDTH 14.6 % (11.5-14.0); SEGMENTED NEUTROPHILS % (AUTO) 69.2 % (42-78); TOTAL CELLS COUNTED % (AUTO) 100 %; WHITE BLOOD COUNT 9.7 10^3/uL (4.0-10.5)
[2018-09-07 01:58] LABS: APPEARANCE,URINE CLOUDY; BILIRUBIN,URINE NEGATIVE (NEGATIVE); COLOR,URINE AMBER; GLUCOSE, URINE NEGATIVE (NEGATIVE); KETONES,URINE NEGATIVE (NEGATIVE); LEUKOCYTE ESTERASE,URINE MODERATE (NEGATIVE); NITRITE,URINE POSITIVE (NEGATIVE); PROTEIN,URINE 30 mg/dL (NEGATIVE); URINE SPECIFIC GRAVITY 1.028
[2018-09-07 02:05] LABS: ALANINE AMINOTRANSFERASE 35 U/L (9-52); ALBUMIN 4.2 g/dL (3.5-5.0); ALKALINE PHOSPHATASE 98 U/L (38-126); ANION GAP 12 (5-19); ASPARTATE AMINO TRANSFERASE 25 U/L (14-36); BILIRUBIN,DIRECT 0.3 mg/dL (0.0-0.4); BILIRUBIN,TOTAL 0.4 mg/dL (0.2-1.3); BLOOD UREA NITROGEN 10 mg/dL (7-20); CALCIUM 9.4 mg/dL (8.4-10.2); CARBON DIOXIDE 23 mmol/L (22-30); CHLORIDE 104 mmol/L (98-107); GLUCOSE 99 mg/dL (75-110); POTASSIUM 4.1 mmol/L (3.6-5.0); SODIUM 138.5 mmol/L (137-145); TOTAL PROTEIN 7.4 g/dL (6.3-8.2)
[2018-09-07] MEDS ORDERED: NORMAL SALINE 1000 ML 1,000 ML IV ONE (05:37)
[2018-09-07] MEDS ORDERED: ONDANSETRON HCL INJ/PF 4 MG/2 ML SDV IV ONE (05:37)
--- NOTE | 2018-09-07 05:37 | ER Document Report ---
ED GI/ - General Chief Complaint: Nausea/Vomiting Stated Complaint: VOMITTING, CHEST PAIN Time Seen by Provider: 09/07/18 05:18 Primary Care Provider: KRISTA GAONA MD [Primary Care Provider] - Follow up as needed Notes: Patient is a 28-year-old female presents to the emergency department with a chief complaint of nausea and vomiting for 1 week. Patient states she has vomited every day multiple times for the past week. Patient states she is also been lightheaded. Patient denies passing out or falling. Patient states that her last menstrual period was in June as she does have a history of irregular periods. Patient denies vaginal bleeding or discharge. Patient pelvic pain. Patient currently denies abdominal pain reports she has had some lower abdominal cramping this week. Patient states she is sexually active and does use protection. Patient states she is not concerned with STDs. Patient states that earlier tonight she called EMS because she was unable to tolerate liquids and continued to vomit. TRAVEL OUTSIDE OF THE [place] IN LAST 30 DAYS: No - Related Data Allergies/Adverse Reactions: amoxicillin [Amoxicillin] Allergy (Unknown, Verified 10/23/17 06:54) rash/hives Penicillins Allergy (Unknown, Verified 10/23/17 06:54) rash/hives Past Medical History - General Information source: Patient - Social History Smoking Status: Never Smoker Family History: Reviewed & Not Pertinent Patient has suicidal ideation: No Patient has homicidal ideation: No - Past Medical History Cardiac Medical History: Reports: None Pulmonary Medical History: Reports: None Denies: Hx Tuberculosis EENT Medical History: Reports: None Neurological Medical History: Reports: None. Denies: Hx Seizures Endocrine Medical History: Reports: None Renal/ Medical History: Reports: None. Denies: Hx Peritoneal Dialysis Malignancy Medical History: Reports: None GI Medical History: Reports: None Musculoskeletal Medical History: Reports None Skin Medical History: Reports Hx MRSA Psychiatric Medical History: Reports: None Traumatic Medical History: Reports: None Infectious Medical History: Reports: None Past Surgical History: Reports: Hx CholecystectomyComment Only: Hx Hysterectomy - SERUM HCG NEGATIVE - Immunizations Immunizations up to date: Yes Hx Diphtheria, Pertussis, Tetanus Vaccination: Yes - 04/2013 Review of Systems - Review of Systems Constitutional: No symptoms reported EENT: No symptoms reported Cardiovascular: No symptoms reported Respiratory: No symptoms reported Gastrointestinal: See HPI Genitourinary: No symptoms reported Female Genitourinary: No symptoms reported Musculoskeletal: No symptoms reported Skin: No symptoms reported Hematologic/Lymphatic: No symptoms reported Neurological/Psychological: No symptoms reported Physical Exam - Vital signs Vitals: Temp Pulse Resp BP Pulse Ox 98.6 F 79 20 131/77 H 100 09/07/18 01:02 09/07/18 01:02 09/07/18 01:02 09/07/18 01:02 09/07/18 01:02 Interpretation: Normal - Notes Notes: GENERAL: Well-appearing, well-nourished and in no acute distress. HEAD: Atraumatic, normocephalic. EYES: Pupils equal round and reactive to light, extraocular movements intact, sclera anicteric, conjunctiva are normal. ENT: TMs normal, nares patent, oropharynx clear without exudates. Moist mucous membranes. NECK: Normal range of motion, supple without lymphadenopathy or JVD. LUNGS: Breath sounds clear to auscultation bilaterally and equal. No wheezes rales or rhonchi. HEART: Regular rate and rhythm without murmurs, rubs or gallops. ABDOMEN: Soft, obese, nontender, normoactive bowel sounds. No guarding, no rebound. No masses appreciated. BACK: No cervical, thoracic, lumbar midline tenderness. No saddle anesthesia, normal distal neurovascular exam. GENITOURINARY: Deferred. EXTREMITIES: Normal range of motion, no pitting or edema. No clubbing or cyanosis. NEUROLOGICAL: Cranial nerves II through XII grossly intact. Normal speech, normal gait. PSYCH: Normal mood, normal affect. SKIN: Warm, Dry, normal turgor, no rashes or lesions noted. Course - Re-evaluation Re-evalutation: 09/07/18 05:36 His urine was positive. I did inform the patient of this. I have added on HCC quant and will obtain an ultrasound. Patient's urine is positive for urinary tract infection. I will give fluids and antinausea medication. Patient is not actively vomited and states she has not vomited since coming to the emergency department. 09/07/18 07:34 Patient is tolerating fluids p.o. Will give patient dose of Macrobid for her u rinary tract infection while in the emergency department and give her prescription. I did discuss with the patient that she is and needs to start taking vitamins. I did inform her to avoid medications that are not safe in . Patient verbalizes understanding and states that this is her seventh and that she has a 6 live children. She states her COMPUTER REPAIR INSTRUCTOR is [facility] and that she will call them on Tuesday for follow-up. - Vital Signs Vital signs: Temp Pulse Resp BP Pulse Ox 98.2 F 68 18 121/63 100 09/07/18 05:04 09/07/18 05:04 09/07/18 05:04 09/07/18 05:04 09/07/18 05:04 - Laboratory Result Diagrams: 09/07/18 01:25 09/07/18 01:25 Laboratory results interpreted by me: 09/07/18 09/07/18 09/07/18 01:25 01:25 01:25 RDW 14.6 H Beta HCG, Quant 58654.00 H Urine Protein 30 H Urine Nitrite POSITIVE H Urine Urobilinogen 4.0 H Ur Leukocyte Esterase MODERATE H Urine HCG, Qual POSITIVE H 09/07/18 07:35 Urinalysis shows positive nitrites and moderate leukocytes. A urine culture was added and patient medicated appropriately for urinary tract infection. - Diagnostic Test Radiology reviewed: Reports reviewed Discharge - Discharge Clinical Impression: Intrauterine Vomiting Qualifiers: Vomiting type: unspecified Vomiting Intractability: non-intractable Nausea presence: with nausea Qualified Code(s): R11.2 - Nausea with vomiting, unspecified Condition: Stable Disposition: HOME, SELF-CARE Instructions: Antinausea Medication ([facility]), Intravenous (IV) Fluids ([facility]), Vomiting ([facility]) Additional Instructions: Today you were seen in the emergency department for nausea, vomiting and lightheadedness. Your urine was positive as well as your blood work which did confirm that you are . We did obtain an ultrasound which measures you at 8 weeks and 3 days. The estimated delivery date is April 16, 2019. Please call [facility] on Tuesday to make an appointment. Please start taking vitamins. Please avoid medications that are not safe in . Please avoid alcohol, smoking or using recreational drugs. If you take medications on a regular basis please discuss this with your COMPUTER REPAIR INSTRUCTOR as they could be harmful to your baby. Please return to the emergency department for any worsening signs or symptoms to include inability to tolerate liquids, fever, abdominal pain, vaginal bleeding or any other concerning signs or symptoms. Your urine did show that you have a urinary tract infection. We have given you a dose of antibiotics in the emergency department and I will prescribe you an antibiotic to take at home. Please have your COMPUTER REPAIR INSTRUCTOR repeat urinalysis to assure that your infection has improved. Seek medical attention for fever, flank pain (which is above your kidneys). Urinary Tract Infection Your evaluation indicates that you have a urinary tract infection. This is due to germs growing in the bladder. This is a common problem. This infection usually responds quickly to antibiotics. Your antibiotic should be taken exactly as prescribed. Drink plenty of fluids -- three to four quarts a day. Occasionally, a bladder anesthetic will be prescribed to help stop the feeling of urgency until the antibiotic has a chance to clear the infection. This may cause your urine to be dark orange. Certain urine infections require a culture. If the doctor obtained a culture, the results will be back in two days. You should call to see if a change in treatment is needed. A repeat urinalysis after you finish treatment is often recommended. The physician will let you know if further testing is required. Call the doctor if you develop fever, chills, flank pain, inability to urinate, or blood in the urine. You are . care is best started as early in as possible. If you're unsure about continuing this , you should discuss this with your physician or with assessment analyst at [facility]. You should take only medications approved by your physician. Acetaminophen can safely be taken for minor pains. As a rule, medication for chronic conditions such as asthma or seizures can safely be continued. You should discuss with the physician every medicine you take. Any regular exercise program can be continued. Talk to your physician, however, before engaging in competitive or demanding sports. Alcohol, smoking, and "street drugs" are dangerous to your baby. Cocaine is especially dangerous. Don't use any illicit drugs! Prescriptions: Nitrofurantoin/Nitrofuran Mac [Macrobid 100 mg Capsule] 1 tab PO BID 7 Days #14 capsule Referrals: KRISTA GAONA MD [Primary Care Provider] - Follow up as needed
--- NOTE | 2018-09-07 07:07 | RADIOLOGY REPORT (SQ) ---
EXAM DESCRIPTION: US TRANSVAGINAL COMPLETED DATE/TME: 09/07/2018 05:56 CLINICAL HISTORY: 28 years, Female, lower abdominal cramping, + hcg COMPARISON: None. TECHNIQUE: Transvaginal pelvic ultrasound LIMITATIONS: None. FINDINGS: The uterus is anteverted and measures 11.1 x 7.2 x 7.0 cm. A single live intrauterine is identified. The intrauterine gestational sac has a normal shape. The crown-rump length measures 1.93 cm. The heart rate is one 63 bpm. No subchorionic hemorrhage is identified. The cervix appears closed and measures 2.8 cm in length. The right ovary measures 3.3 x 2.6 x 2.0 cm. There is a 2.0 x 2.6 x 2.1 cm right ovarian cyst. The left ovary is not uniquely identified. No significant free fluid is identified. The last menstrual period was 06/09/2018 correlating to a clinical age of 12 weeks six days and estimated delivery date of 03/16/2019. The ultrasound age is 8 weeks three days. The estimated ultrasound delivery date is 04/16/2019. IMPRESSION: Single live intrauterine , as above. copyright 2010 [employer]- All Rights Reserved
[2018-09-07] MEDS ORDERED: NITROFURANTOIN MONOHYD/M-CRYST 100 MG CAPSULE PO ONE (07:33)
[2018-09-07 07:48] VITALS: BP 124/61
== END 2018-09-07 08:52 | disposition home or self-care (01) ==
LOC: ER 00:41
DX: O23.41 Unspecified infection of urinary tract in pregnancy, first trimester (principal); R11.2 Nausea with vomiting, unspecified; R07.9 Chest pain, unspecified; Z3A.08 8 weeks gestation of pregnancy; Z88.0 Allergy status to penicillin; Z90.49 Acquired absence of other specified parts of digestive tract; Z86.14 Personal history of Methicillin resistant Staphylococcus aureus infection
CPT/HCPCS: 99284; 96361; 96374; 36415; 84702; 85025; 81025; 80053; 81001; 76817; 93976; J2405; J7030; J3490; J8499

== ENCOUNTER 2018-10-16 21:36 | Emergency (ER) | payer MEDICAID ==
[2018-10-16 22:29] VITALS: BP 146/87
[2018-10-17] MEDS ORDERED: NEOMY SULF/POLYMYX B SULF/HC OTIC SUSP 10 ML AD ONE (02:40)
--- NOTE | 2018-10-17 02:44 | ER Document Report ---
ED General - General Chief Complaint: Ear Pain Stated Complaint: EAR PAIN,SWOLLEN FACE,FEVER Time Seen by Provider: 10/17/18 02:31 TRAVEL OUTSIDE OF THE [place] IN LAST 30 DAYS: No - HPI Notes: 28-year-old female presents with right-sided ear pain. Patient describes 2 days gradual onset pain in her right ear that now extends down toward her jaw. She has not been swimming recently. Is not wearing ear protection or use earplugs. Moderate intensity, gradual onset, nonradiating. Burning and throbbing. No history of diabetes. No other modifying factors, no other associated symptoms, no other provocative or palliative factors. - Related Data Allergies/Adverse Reactions: amoxicillin [Amoxicillin] Allergy (Unknown, Verified 10/23/17 06:54) rash/hives Penicillins Allergy (Unknown, Verified 10/23/17 06:54) rash/hives Past Medical History - Social History Smoking Status: Unknown if Ever Smoked Family History: Reviewed & Not Pertinent Patient has suicidal ideation: No Patient has homicidal ideation: No - Medical History Medical History: Negative Pulmonary Medical History: Denies: Hx Tuberculosis Neurological Medical History: Denies: Hx Seizures Renal/ Medical History: Denies: Hx Peritoneal Dialysis Skin Medical History: Reports Hx MRSA Past Surgical History: Reports: Hx CholecystectomyComment Only: Hx Hysterectomy - SERUM HCG NEGATIVE - Immunizations Immunizations up to date: Yes Hx Diphtheria, Pertussis, Tetanus Vaccination: Yes - 04/2013 Review of Systems - Review of Systems Notes: Review of systems as in the history of present illness, otherwise negative x 10 systems. Physical Exam - Vital signs Vitals: Temp Pulse Resp BP Pulse Ox 98.5 F 96 24 H 146/87 H 100 10/16/18 22:27 10/16/18 22:27 10/16/18 22:27 10/16/18 22:27 10/16/18 22:27 - Notes Notes: General: Well devloped, no acute distress. HEENT: Normocephalic, atraumatic. Pupils equal round reactive to light. Mucosa moist. No JVD. Right external canal is edematous, erythematous, has debris. Chest: No trauma, normal excursion. Respiratory: Good air exchange, normal excursion. Cardiac: Regular rhythm Abdomen: Soft, benign. Nondistended. Back: No asymmetry or gross abnormality. Motor: Grossly normal power and tone. Neurologic: Alert, nonfocal. Vascular: Well perfused Skin: No petechiae or purpura Course - Re-evaluation Re-evalutation: 10/17/18 02:41 Well-appearing female with likely otitis externa. Will treat with Cortisporin otic suspension, placed an ear wick, outpatient follow-up. Prescription for same. - Vital Signs Vital signs: Temp Pulse Resp BP Pulse Ox 98.5 F 96 24 H 146/87 H 100 10/16/18 22:27 10/16/18 22:27 10/16/18 22:27 10/16/18 22:27 10/16/18 22:27 Discharge - Discharge Clinical Impression: Otitis externa Qualifiers: Otitis externa type: swimmer's ear Chronicity: unspecified Laterality: right Qualified Code(s): H60.331 - Swimmer's ear, right ear Condition: Stable Disposition: HOME, SELF-CARE Instructions: Use of Ear Drops ([facility]), Using Ear Drops with a Wick ([facility]), Otitis Externa ([facility]) Prescriptions: Neomy Sulf/Polymyx B Sulf/Hc [Cortisporin Otic Susp] 4 drop RT_EAR Q4 #1 bottle
== END 2018-10-17 03:11 | disposition home or self-care (01) ==
LOC: ER 21:36
DX: H60.331 Swimmer's ear, right ear (principal); H92.01 Otalgia, right ear; R22.0 Localized swelling, mass and lump, head; R50.9 Fever, unspecified; R68.84 Jaw pain
CPT/HCPCS: 99282; J3490

== ENCOUNTER 2019-01-25 15:45 | Outpatient (CLI) | payer MEDICAID ==
[2019-01-25 16:52] LABS: AMORPHOUS SEDIMENT,URINE TRACE /HPF; APPEARANCE,URINE CLOUDY; BILIRUBIN,URINE NEGATIVE (NEGATIVE); GLUCOSE, URINE NEGATIVE (NEGATIVE); KETONES,URINE NEGATIVE (NEGATIVE); LEUKOCYTE ESTERASE,URINE LARGE (NEGATIVE); NITRITE,URINE POSITIVE (NEGATIVE); PROTEIN,URINE 30 mg/dL (NEGATIVE); URINE SPECIFIC GRAVITY 1.016
[2019-01-25 16:53] LABS: COLOR,URINE YELLOW
[2019-01-25 17:14] LABS: URINE AMPHETAMINES SCREEN NEGATIVE; URINE BARBITURATES SCREEN NEGATIVE; URINE BENZODIAZEPINES SCREEN NEGATIVE; URINE COCAINE SCREEN NEGATIVE; URINE MARIJUANA (THC) SCREEN NEGATIVE; URINE METHADONE SCREEN NEGATIVE; URINE PHENCYCLIDINE SCREEN NEGATIVE
[2019-01-25] MEDS ORDERED: CEFTRIAXONE INJ 1000 MG VIAL IV ONE (17:14)
[2019-01-25] MEDS ORDERED: CEFTRIAXONE INJ 1000 MG VIAL ONE (17:14)
== END 2019-01-25 17:45 | disposition home or self-care (01) ==
LOC: LC 15:45
PROVIDERS: ATTEND Obstetrics & Gynecology Gynecology
PROC: 4A1HXCZ Monitoring of Products of Conception, Cardiac Rate, External Approach (ICD-10-PCS; principal; 2019-01-25)
DX: O23.43 Unspecified infection of urinary tract in pregnancy, third trimester (principal); Z3A.29 29 weeks gestation of pregnancy
CPT/HCPCS: 59899; 81001; 80307; J0696; 87086; 87088; 94760

== ENCOUNTER 2019-03-13 15:02 | Outpatient (CLI) | payer MEDICAID ==
[2019-03-13 15:56] LABS: APPEARANCE,URINE CLOUDY; BILIRUBIN,URINE NEGATIVE (NEGATIVE); GLUCOSE, URINE 150 mg/dL (NEGATIVE); KETONES,URINE NEGATIVE (NEGATIVE); LEUKOCYTE ESTERASE,URINE LARGE (NEGATIVE); NITRITE,URINE NEGATIVE (NEGATIVE); PROTEIN,URINE 100 mg/dL (NEGATIVE); URINE SPECIFIC GRAVITY 1.025
[2019-03-13 15:57] LABS: COLOR,URINE DARK YELLOW
--- NOTE | 2019-03-13 16:01 | Non Stress Test Report ---
Non Stress Test Datetime Report Generated by CPN: 03/13/2019 16:01 DEMOGRAPHIC EGA NST: 35.5 INDICATION Indication for Study (NST) Other: LABOR CHECK VITAL SIGNS Temperature - NST: 98.5 Pulse - NST: 79 RESP - NST: 18 NBPSYS NST: 116 NBPDIA NST: 57 MONITORING Monitor Explained: Monitor Explained; Test Explained; Patient Verbalized Understanding Time on Monitor: 03/13/2019 15:19 Time off Monitor: 03/13/2019 15:43 NST Duration: 24 NST INTERVENTIONS NST Interventions: PO Hydration; Reposition Patient Physician Notified NST: C CUEVAS, CNM BABY A: [id number] BABY A Movement : Present Contraction Frequency : RARE FHR Baseline : 145 Accelerations : 15X15 Decelerations : None Variability : Moderate 6-25bpm NST Review: Meets Criteria for Reactive NST NST Review and Verified By : tr NST Results: Reactive NST REPORT Report Trigger: Send Report
[2019-03-13 16:04] LABS: URINE AMPHETAMINES SCREEN NEGATIVE; URINE BARBITURATES SCREEN NEGATIVE; URINE BENZODIAZEPINES SCREEN NEGATIVE; URINE COCAINE SCREEN NEGATIVE; URINE MARIJUANA (THC) SCREEN NEGATIVE; URINE METHADONE SCREEN NEGATIVE; URINE PHENCYCLIDINE SCREEN NEGATIVE
== END 2019-03-13 15:50 | disposition home or self-care (01) ==
LOC: LC 15:02
PROVIDERS: ATTEND Obstetrics & Gynecology
PROC: 4A1HXCZ Monitoring of Products of Conception, Cardiac Rate, External Approach (ICD-10-PCS; principal; 2019-03-13)
DX: Z36.89 Encounter for other specified antenatal screening (principal); Z3A.35 35 weeks gestation of pregnancy
CPT/HCPCS: 59025; 80307; 81001; 84112

== ENCOUNTER 2019-03-21 11:19 | Outpatient (CLI) | payer MEDICAID ==
--- NOTE | 2019-03-21 13:45 | RADIOLOGY REPORT (SQ) ---
EXAM DESCRIPTION: U/S OB LIMITED COMPLETED DATE/TIME: 03/21/2019 1:33 pm REASON FOR STUDY: variable deceleration, NR NST in office, pres COMPARISON: None. TECHNIQUE: Limited transabdominal grayscale ultrasound for evaluation of specific requested obstetri vadim parameters. LIMITATIONS: None. FINDINGS: CERVICAL LENGTH: Not visualized. DEVANG: 15.9 cm. FHR: 135 beats per minute. PRESENTATION: Cephalic. PLACENTA: Anterior ANATOMY: Not assessed OTHER: No other significant findings. IMPRESSION: LIMITED OBSTETRICAL ULTRASOUND WITH MEASURED PARAMETERS DELINEATED ABOVE. Trimester of : Third trimester - 28 weeks to delivery. TECHNICAL DOCUMENTATION: JOB ID: [id number] [employer]- All Rights Reserved Reading location - IP/workstation name: [email or web address]
--- NOTE | 2019-03-21 16:17 | Non Stress Test Report ---
Non Stress Test Datetime Report Generated by CPN: 03/21/2019 16:17 DEMOGRAPHIC EGA NST: 36.6 INDICATION Indication for Study (NST) Other: repeat NST sent from office VITAL SIGNS Temperature - NST: 98.7 Pulse - NST: 89 RESP - NST: 20 NBPSYS NST: 109 NBPDIA NST: 60 MONITORING Monitor Explained: Monitor Explained; Test Explained; Patient Verbalized Understanding Time on Monitor: 03/21/2019 12:30 Time off Monitor: 03/21/2019 13:00 NST Duration: 30 NST INTERVENTIONS NST Interventions: PO Hydration; Reposition Patient Physician Notified NST: C Watson CNM/Dr Juarez BABY A: [id number] BABY A Contraction Frequency : 0 FHR Baseline : 130 (Annotations: Data stored by CPN on behalf of user) Accelerations : 15X15 Decelerations : None Variability : Moderate 6-25bpm NST Review: Meets Criteria for Reactive NST NST Review and Verified By : C Bergen RN NST Results: Reactive NST COMMENTS NST Comments: providers on unit NST REPORT Report Trigger: Send Report
== END 2019-03-21 13:59 | disposition home or self-care (01) ==
LOC: LC 11:19
PROVIDERS: ATTEND Student in an Organized Health Care Education/Training Program
PROC: 4A1HXCZ Monitoring of Products of Conception, Cardiac Rate, External Approach (ICD-10-PCS; principal; 2019-03-21)
DX: O24.419 Gestational diabetes mellitus in pregnancy, unspecified control (principal); Z3A.36 36 weeks gestation of pregnancy
CPT/HCPCS: 76815

== ENCOUNTER 2019-04-06 22:42 | Inpatient (IN) | payer MEDICAID ==
[2019-04-06] MEDS ORDERED: MISOPROSTOL 0.2 MG TABLET ONE (22:44)
[2019-04-06] MEDS ORDERED: OXYTOCIN/NORMAL SALINE 20 UNIT/1,000 ML RTUINJ ONE (22:44)
[2019-04-06] MEDS ORDERED: OXYTOCIN 10 UNIT/ML VIAL ONE (22:44)
[2019-04-06] MEDS ORDERED: LIDOCAINE 1% INJ-PF (10 MG/ML) 30 ML SDV ONE (22:44)
[2019-04-06 23:35] LABS: APPEARANCE,URINE CLOUDY; BILIRUBIN,URINE NEGATIVE (NEGATIVE); COLOR,URINE AMBER; GLUCOSE, URINE NEGATIVE (NEGATIVE); KETONES,URINE NEGATIVE (NEGATIVE); LEUKOCYTE ESTERASE,URINE LARGE (NEGATIVE); NITRITE,URINE NEGATIVE (NEGATIVE); PROTEIN,URINE 30 mg/dL (NEGATIVE); URINE SPECIFIC GRAVITY 1.012
[2019-04-06 23:56] LABS: URINE AMPHETAMINES SCREEN NEGATIVE; URINE BARBITURATES SCREEN NEGATIVE; URINE BENZODIAZEPINES SCREEN NEGATIVE; URINE COCAINE SCREEN NEGATIVE; URINE MARIJUANA (THC) SCREEN NEGATIVE; URINE METHADONE SCREEN NEGATIVE; URINE PHENCYCLIDINE SCREEN NEGATIVE
[2019-04-07] MEDS ORDERED: RINGERS SOLUTION,LACTATED 1,000 ML IV PRN (00:14)
[2019-04-07] MEDS ORDERED: RINGERS SOLUTION,LACTATED 1,000 ML IV ONE (00:14)
[2019-04-07 00:56] LABS: ABSOLUTE LYMPHOCYTES (AUTO) 1.5 10^3/uL (0.5-4.7); ABSOLUTE MONOCYTES (AUTO) 0.5 10^3/uL (0.1-1.4); BASOPHILS % (AUTO) 0.3 % (0-2); EOSINOPHILS % (AUTO) 0.5 % (0-6); HEMATOCRIT 35.8 % (36.0-47.0); HEMOGLOBIN 12.3 g/dL (12.0-15.5); LYMPHOCYTES % (AUTO) 21.7 % (13-45); MEAN CORPUSCULAR HEMOGLOBIN 30.5 pg (27.0-33.4); MEAN CORPUSCULAR HGB CONC 34.2 g/dL (32.0-36.0); MEAN CORPUSCULAR VOLUME 89 fl (80-97); MONOCYTES % (AUTO) 6.4 % (3-13); PLATELET COUNT 162 10^3/uL (150-450); RED BLOOD COUNT 4.02 10^6/uL (3.72-5.28); RED CELL DISTRIBUTION WIDTH 14.4 % (11.5-14.0); SEGMENTED NEUTROPHILS % (AUTO) 71.1 % (42-78); TOTAL CELLS COUNTED % (AUTO) 100 %
[2019-04-07 01:02] LABS: CHLAM PCR NOT DETECTED (NOT DETECT)
[2019-04-07] MEDS ORDERED: MORPHINE SULFATE 10 MG/ML INJ IV ONE (02:35)
[2019-04-07] MEDS ORDERED: PROMETHAZINE HCL INJ 25 MG/1 ML VIAL IV ONE (02:35)
[2019-04-07] MEDS ORDERED: PROMETHAZINE HCL INJ 25 MG/1 ML VIAL ONE (02:37)
[2019-04-07] MEDS ORDERED: MORPHINE SULFATE 10 MG/ML INJ ONE (02:37)
--- NOTE | 2019-04-07 02:38 | Admission Physical ---
Datetime Report Generated by CPN: 04/07/2019 02:38 CURRENT ADMISSION Chief Complaint: Uterine Contractions Admit Impression : Intact Membranes Admit Plan: Admit to Unit; Initiate Labor Protocol ALLERGIES Medication Allergies: Yes Medication Allergies: Penicillins/rash/hives (03/21/2019); amoxicillin/rash/hives (03/21/2019) Latex: No Latex Allergies Food Allergies: None Environmental Allergies: None OBSTETRICAL HISTORY EDC: 04/12/2019 00:00 : 7 Para: 6 Term: 5 : 1 SAB: 0 IAB: 0 Ectopic: 0 Livin Cesareans: 0 VBACs: 0 Multiple Births: 0 Gestational Diabetes: Yes Rh Sensitization: No Incompetent Cervix: No ALVARADO: No Infertility: No ART Treatment: No Uterine Anomaly: No IUGR: No Hx Previous C/S: No Macrosomia: No Hx Loss/Stillborn: No PIH: No Hx : No Placenta Previa/Abruption: No Depression/PP Depression: No PTL/PROM: Yes Post Hemorrhage: No Current Procedures: Ultrasound Obstetrical History Comments: G1- 2004, , Shoulder dystocia G2- 2007, G3- 2008, G4- 2014, G5- 2016, at 34 weeks, PROM, born in elevator at [facility]. G6- 2018, , GDM G7- Current, GDM, limited PNC chlam 1.15 SEE RECORDS Alcohol: No Marijuana : No Cocaine: No Other Illicit Drugs: No Cigarettes: Never Smoker. 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 2012 abnormal pap smear INFECTIOUS HISTORY Gonorrhea: No Genital Herpes: No Chlamydia: No Tuberculosis: No Syphilis: No Hepatitis: No HIV/AIDS Exposure: No Rash or Viral Illness: No HPV: No Infectious History Comments: positive [id number] PHYSICAL EXAM General: Normal HEENT: Normal Neurologic: Normal Thyroid: Normal Heart: Normal Lungs: Normal Breast: Deferred Back: Normal Abdomen: Normal Genitourinary Exam: Normal Extremities: Normal DTRs: Normal Pelvic Type: Adequate Vital Signs: Reviewed VAGINAL EXAM Dilatation: 5 Effacement: 100 Station: -2 MEMBRANES Pooling: Negative Membranes: Intact FETUS A EGA: 39.2 Monitoring: External US Decelerations: None Presentation: Vertex Admit Comment: Admit PLANS FOR LABOR AND DELIVERY Labor and Delivery: None Pain Management: Natural Feeding Preference: Breast Benefit of Breast Feed Discussed: Yes Circumcision: Yes INFORMED CONSENT Signature: with User ID: [email or web address]
[2019-04-07] MEDS ORDERED: OXYTOCIN/NORMAL SALINE 20 UNIT/1,000 ML RTUINJ IV PRN (10:36)
[2019-04-07] MEDS ORDERED: ZOLPIDEM TARTRATE 5 MG TABLET PO PRN (10:36)
[2019-04-07] MEDS ORDERED: BENZOCAINE/MENTHOL AEROSOL SPRAY 56 ML TOP PRN (10:36)
[2019-04-07] MEDS ORDERED: DIPH/PERTUSS(ACELL)/TETANUS VAC/PF 0.5 ML SYR (>=10YO) IM PRN (10:36)
[2019-04-07] MEDS ORDERED: DIBUCAINE 1% OINTMENT 28 GM TP PRN (10:36)
[2019-04-07] MEDS ORDERED: MEASLES,MUMPS&RUBELLA VACC/PF 0.5 ML VIAL SUBCUT PRN (10:36)
[2019-04-07] MEDS ORDERED: ACETAMINOPHEN WITH CODEINE #3 TABLET PO PRN (10:36)
[2019-04-07] MEDS ORDERED: ACETAMINOPHEN WITH CODEINE #3 TABLET ONE (10:47)
[2019-04-07] MEDS ORDERED: IBUPROFEN 800 MG TABLET ONE (10:47)
[2019-04-07] MEDS: IBUPROFEN 800 MG TABLET PO SCH ×2 (10:55→21:02)
--- NOTE | 2019-04-07 13:05 | Delivery Summary ---
Del Sum A-C Datetime Report Generated by CPN: 04/07/2019 13:04 DELIVERY PERSONNEL DELIVERY PERSONNEL: [id number] Delivery Doctor:: Rachael Negron MD Labor and Delivery Nurse:: Mena Staton RNassistant branch operations manager Nurse:: Niru Vargas RN Black Pickler/INFANTRY OFFICER: Aye Von Devaughn, PRACTICING DERMATOLOGIST Black Pickler/INFANTRY OFFICER: Dina Dunbar, PRACTICING DERMATOLOGIST MATERNAL INFORMATION Delivery Anesthesia: None Medications After Delivery: Pitocin Bolus-Please Comment Meds After Delivery Comment: Pitocin 20 units/1000 mL NS bolus following Estimated Blood Loss (ml): 200 Delivery QBL: 90 Maternal Complications: None Provider Comments: Called to patients room, completely dilated and with urge to push. Patient pushed through one contraction and delivered viable male in vertex presentation. Tight nuchal encountered: not able to reduce and delivered through easily. Cord clamping delayed 30 seconds as was vigorous. Cord then doubly clamped, cut and infant placed skin to skin with Mother. Both stable. Oral suctioning done during delay of cord clamping. LABOR SUMMARY EDC: 04/12/2019 00:00 No. Babies in Womb: 1 Attempted: No Labor Anesthesia: None LABOR INFORMATION Reason for Induction: Not Applicable Onset of Labor: 04/07/2019 02:30 Complete Dilatation: 04/07/2019 10:05 Oxytocin: N/A Group B Beta Strep: negative Antibiotics # of Doses: 0 Antibiotics Time of Last Dose: n/a Steroids Given: None Reason Steroids Not Administered: Not Applicable MEMBRANES Membranes Rupture Method: Artificial Rupture of Membranes: 04/07/2019 07:02 Length of Rupture (hr): 3.27 Amniotic Fluid Color: Clear Amniotic Fluid Amount: Small Amniotic Fluid Odor: Normal STAGES OF LABOR Stage 1 hr: 7 Stage 1 min: 35 Stage 2 hr: 0 Stage 2 min: 13 Stage 3 hr: 0 Stage 3 min: 5 Total Time in Labor hr: 7 Total Time in Labor min: 53 VAGINAL DELIVERY Laceration #1: Perineal; Periurethral Laceration Extension #1: First Degree Laceration Repair: Yes Laceration Repair Note: Mid line first degree above urethra was repaired with 3-0 chromic in a runnning fashion. First degree perineal laceration repaired in in running fashion with 3-0 chromic Sponge Count Correct: Yes Sharps Count Correct: Yes CSECTION DELIVERY Primary Indication: N/A Secondary Indication: N/A CSection Incidence: N/A Labor: N/A Elective: N/A CSection Incision: N/A BABY A INFORMATION Infant Delivery Date/Time: 04/07/2019 10:18 Method of Delivery: Vaginal Born in Route : No : N/A Forceps: N/A Vacuum Extraction: N/A Shoulder Dystocia : No PRESENTATION/POSITION BABY A Presentation: Cephalic Cephalic Presentation: Vertex Breech Presentation: N/A PLACENTA INFORMATION BABY A Placenta Delivery Time : 04/07/2019 10:23 Placenta Method of Delivery: Spontaneous Placenta Status: Delivered SCORES BABY A Heart Rate 1 min: >100 bpm Resp Effort 1 min: Good Cry Reflex Irritability 1 min: Cough or Sneeze or Pulls Away Muscle Tone 1 min: Active Motion Color 1 min: Blue/Pale Resuscitation Effort 1 min: Tactile Stimulation SCORE 1 MIN: 8 Heart Rate 5 min: >100 bpm Resp Effort 5 min: Good Cry Reflex Irritability 5 min: Cough or Sneeze or Pulls Away Muscle Tone 5 min: Active Motion Color 5 min: Completely Globe Resuscitation Effort 5 min: N/A SCORE 5 MIN: 10 INFORMATION BABY A Gestational Age at Delivery: 39.2 Gestational Status: Full Term- 39- 40.6 Weeks Infant Outcome : Liveborn Condition : Stable Sex: Male IDENTIFICATION BABY A Verification Date/Time: 04/07/2019 10:40 ID Band Number: [id number] Mother's Name Verified: Yes RN Verifying Infant: B Baidy RN Additional Verifying Personnel: [facility] PRACTICING DERMATOLOGIST WEIGHT/LENGTH BABY A Birthweight (gm): 3585 Infant Weight (lb): 7 Weight (oz): 14 Infant Length (in): 20.00 Length (cm): 50.80 CORD INFORMATION BABY A No. Cord Vessels: 3 Nuchal Cord : Around Neck x1, Tight Cord Blood Taken: Yes-For Storage (Mom's Blood type +) Suction: None ASSESSMENT BABY A Complications: None Physical Findings at Delivery: Within Normal Limits Respirations: Appears Normal Skin to Skin: Yes Absorption Plant Operator Helper/ALS Called : No Infant Care By: H Sam RN Transferred To: [facility] BABY B INFORMATION : N/A SIGNATURES Signature: with User ID: [email or web address] : with User ID: [email or web address]
[2019-04-07] MEDS: DOCUSATE SODIUM 100 MG CAPSULE PO SCH (17:49)
[2019-04-07] MEDS: FERROUS SULFATE 325 MG TABLET PO SCH (17:49)
[2019-04-07] MEDS: ACETAMINOPHEN WITH CODEINE #3 TABLET PO PRN (21:52)
[2019-04-08] MEDS: IBUPROFEN 800 MG TABLET PO SCH ×3 (05:26→21:06)
[2019-04-08 07:37] LABS: HEMATOCRIT 31.1 % (36.0-47.0); HEMOGLOBIN 10.6 g/dL (12.0-15.5); MEAN CORPUSCULAR HEMOGLOBIN 30.6 pg (27.0-33.4); MEAN CORPUSCULAR HGB CONC 34.2 g/dL (32.0-36.0); MEAN CORPUSCULAR VOLUME 90 fl (80-97); PLATELET COUNT 141 10^3/uL (150-450); RED BLOOD COUNT 3.47 10^6/uL (3.72-5.28); RED CELL DISTRIBUTION WIDTH 14.5 % (11.5-14.0)
[2019-04-08] MEDS: SENNOSIDES/DOCUSATE 8.6-50 MG 1 EACH TABLET PO SCH (10:08)
[2019-04-08] MEDS: FERROUS SULFATE 325 MG TABLET PO SCH ×2 (10:08→17:21)
[2019-04-08] MEDS: PRENATAL VITAMIN W DHA CAPSULE PO SCH (10:08)
[2019-04-08] MEDS: DOCUSATE SODIUM 100 MG CAPSULE PO SCH ×2 (10:08→17:21)
--- NOTE | 2019-04-08 10:30 | PDOC PROGRESS REPORT ---
Subjective-OB Progress Note for:: 04/08/19 Subjective: Doing well, no c/o, , ambulating, voiding, family at BS Physical Exam (OB) Vital Signs: Temp Pulse Resp BP Pulse Ox 97.9 F 59 L 18 119/69 99 04/08/19 07:10 04/08/19 07:10 04/08/19 07:10 04/08/19 07:10 04/08/19 07:10 Intake & Output 04/07/19 04/08/19 04/09/19 06:59 06:59 06:59 Intake Total 320 Balance 320 Weight 114.6 kg - PIH/Pre-Eclampsia Clonus: Negative Headache: Absent Epigastric Pain: No Visual Changes: No - Lochia Lochia Amount: Scant < 10 ml Lochia Color: Rubra/Red - Abdomen Description: Soft Hernia Present: No Fundal Description: Firm, Midline Fundal Height: u/u - u/2 Objective-Diagnostic Laboratory: 04/08/19 07:13 04/08/19 07:13 WBC 9.0 RBC 3.47 L Hgb 10.6 L Hct 31.1 L MCV 90 MCH 30.6 MCHC 34.2 RDW 14.5 H Plt Count 141 L Assessment and Plan(PN) - Assessment and Plan (1) Delivery normal Is this a current diagnosis for this admission?: Yes (2) Acute blood loss anemia Is this a current diagnosis for this admission?: Yes (3) Gestational diabetes Qualifiers: Gestational diabetes mellitus control: diet-controlled Is this a current diagnosis for this admission?: Yes - Time Spent with Patient Time with patient: Less than 15 minutes Medications reviewed and adjusted accordingly: Yes - Disposition Anticipated Discharge: Home Within: within 24 hours
[2019-04-08] MEDS: ACETAMINOPHEN WITH CODEINE #3 TABLET PO PRN (21:05)
[2019-04-09] MEDS: IBUPROFEN 800 MG TABLET PO SCH (05:03)
--- NOTE | 2019-04-09 09:31 | PDOC DISCHARGE SUMMARY ---
Impression - Admit/DC Date/PCP Admission Date/Primary Care Provider: 04/07/19 00:10 KRISTA GAONA MD Discharge Date: 04/09/19 - Discharge Diagnosis (1) Delivery normal Is this a current diagnosis for this admission?: Yes (2) Acute blood loss anemia Is this a current diagnosis for this admission?: Yes (3) Gestational diabetes Is this a current diagnosis for this admission?: Yes - Additional Information Resuscitation Status: Full Code Discharge Diet: As Tolerated, Regular Discharge Activity: Activity As Tolerated, Pelvic Rest Referrals: KRISTA GAONA MD [Primary Care Provider] - (wha 2 weeks) Prescriptions: Ferrous Sulfate [Feosol 325 mg Tablet] 325 mg PO BID #60 tablet Home Medications: No.137/Iron/Folic Acd [ Vitamin Tablet] 1 each PO DAILY 04/20/13 Ferrous Sulfate [Feosol 325 mg Tablet] 325 mg PO BID #60 tablet 04/09/19 HPI Gestational Age: 39.2 Reason(s) for Admission: Onset of Labor, Gestional Diabetes Procedures: NST, Ultrasound Intrapartum Procedure(s): Spontaneous Vaginal Delivery Complication(s): Laceration-Vaginal, Laceration-Perineal, Laceration- Periurethral Laceration-Degree: 1st - boy, wt = 7-14, 8/10 Hospital Course Hospital Course: Pre-E on Mag, pp doing well, BP stable Results Laboratory Results: WBC 9.0 10^3/uL (4.0-10.5) 04/08/19 07:13 RBC 3.47 10^6/uL (3.72-5.28) L 04/08/19 07:13 Hgb 10.6 g/dL (12.0-15.5) L 04/08/19 07:13 Hct 31.1 % (36.0-47.0) L 04/08/19 07:13 MCV 90 fl (80-97) 04/08/19 07:13 MCH 30.6 pg (27.0-33.4) 04/08/19 07:13 MCHC 34.2 g/dL (32.0-36.0) 04/08/19 07:13 RDW 14.5 % (11.5-14.0) H 04/08/19 07:13 Plt Count 141 10^3/uL (150-450) L 04/08/19 07:13 Lymph % (Auto) 21.7 % (13-45) 04/07/19 00:38 Grand % (Auto) 6.4 % (3-13) 04/07/19 00:38 Eos % (Auto) 0.5 % (0-6) 04/07/19 00:38 Baso % (Auto) 0.3 % (0-2) 04/07/19 00:38 Absolute Neuts (auto) 5.0 10^3/uL (1.7-8.2) 04/07/19 00:38 Absolute Lymphs (auto) 1.5 10^3/uL (0.5-4.7) 04/07/19 00:38 Absolute Monos (auto) 0.5 10^3/uL (0.1-1.4) 04/07/19 00:38 Absolute Eos (auto) 0.0 10^3/uL (0.0-0.6) 04/07/19 00:38 Absolute Basos (auto) 0.0 10^3/uL (0.0-0.2) 04/07/19 00:38 Seg Neutrophils % 71.1 % (42-78) 04/07/19 00:38 Urine Color RADHA 04/06/19 22:57 Urine Appearance CLOUDY 04/06/19 22:57 Urine pH 7.0 (5.0-9.0) 04/06/19 22:57 Ur Specific [place] 1.012 04/06/19 22:57 Urine Protein 30 mg/dL (NEGATIVE) H 04/06/19 22:57 Urine Glucose (UA) NEGATIVE mg/dL (NEGATIVE) 04/06/19 22:57 Urine Ketones NEGATIVE mg/dL (NEGATIVE) 04/06/19 22:57 Urine Blood LARGE (NEGATIVE) H 04/06/19 22:57 Urine Nitrite NEGATIVE (NEGATIVE) 04/06/19 22:57 Urine Bilirubin NEGATIVE (NEGATIVE) 04/06/19 22:57 Urine Urobilinogen 4.0 mg/dL (<2.0) H 04/06/19 22:57 Ur Leukocyte Esterase LARGE (NEGATIVE) H 04/06/19 22:57 Urine Ascorbic Acid NEGATIVE (NEGATIVE) 04/06/19 22:57 Urine Opiates Screen NEGATIVE 04/06/19 22:57 Urine Methadone Screen NEGATIVE 04/06/19 22:57 Ur Barbiturates Screen NEGATIVE 04/06/19 22:57 Ur Phencyclidine Scrn NEGATIVE 04/06/19 22:57 Ur Amphetamines Screen NEGATIVE 04/06/19 22:57 U Benzodiazepines Scrn NEGATIVE 04/06/19 22:57 Urine Cocaine Screen NEGATIVE 04/06/19 22:57 U Marijuana (THC) Screen NEGATIVE 04/06/19 22:57 RPR NONREACTIVE (NONREACTIVE) 04/07/19 00:38 Chlamydia DNA (PCR) NOT DETECTED (NOT DETECT) 04/06/19 22:57 N.gonorrhoeae DNA (PCR) NOT DETECTED (NOT DETECT) 04/06/19 22:57 Blood Type A POSITIVE 04/07/19 00:38 Antibody Screen NEGATIVE 04/07/19 00:38 Plan Health Concerns: routine pp Plan of Treatment: routine, take BS several times a week Goals: no complications Time Spent: Less than 30 Minutes
[2019-04-09] MEDS: PRENATAL VITAMIN W DHA CAPSULE PO SCH (10:04)
[2019-04-09] MEDS: SENNOSIDES/DOCUSATE 8.6-50 MG 1 EACH TABLET PO SCH (10:04)
[2019-04-09] MEDS: DOCUSATE SODIUM 100 MG CAPSULE PO SCH (10:04)
[2019-04-09] MEDS: FERROUS SULFATE 325 MG TABLET PO SCH (10:04)
[2019-04-09 10:19] VITALS: BP 110/66
== END 2019-04-09 12:40 | disposition home or self-care (01) | DRG 807 ==
LOC: LC 22:42 → LR 04-07 00:10 → 2S 04-07 13:00
PROVIDERS: ADMIT Obstetrics & Gynecology; ATTEND Obstetrics & Gynecology
PROC: 10E0XZZ Delivery of Products of Conception, External Approach (ICD-10-PCS; principal; 2019-04-07)
PROC: 10907ZC Drainage of Amniotic Fluid, Therapeutic from Products of Conception, Via Natural or Artificial Opening (ICD-10-PCS; 2019-04-07)
PROC: 0HQ9XZZ Repair Perineum Skin, External Approach (ICD-10-PCS; 2019-04-07)
PROC: 0UQMXZZ Repair Vulva, External Approach (ICD-10-PCS; 2019-04-07)
PROC: 3E0234Z Introduction of Serum, Toxoid and Vaccine into Muscle, Percutaneous Approach (ICD-10-PCS; 2019-04-09)
DX: O24.420 Gestational diabetes mellitus in childbirth, diet controlled (principal); Z37.0 Single live birth; O70.0 First degree perineal laceration during delivery; O71.82 Other specified trauma to perineum and vulva; O99.02 Anemia complicating childbirth; D64.9 Anemia, unspecified; O69.1XX0 Labor and delivery complicated by cord around neck, with compression, not applicable or unspecified; Z3A.39 39 weeks gestation of pregnancy; Z88.0 Allergy status to penicillin; Z86.19 Personal history of other infectious and parasitic diseases; Z23 Encounter for immunization
CPT/HCPCS: 36415; 80307; 81005; 85025; 85027; 86592; 86850; 86900; 86901; 87491; 87591; 90715; J2270; J2550; J2590; J3490

== ENCOUNTER 2019-10-18 19:53 | Emergency (ER) | payer MEDICAID, OTHER ==
--- NOTE | 2019-10-18 21:07 | ER Document Report ---
ED Medical Screen (RME) - General Chief Complaint: Nausea/Vomiting Stated Complaint: NAUSEA/VOMITING Time Seen by Provider: 10/18/19 21:03 Primary Care Provider: KEVIN AMOS MD [Primary Care Provider] - Follow up as needed Mode of Arrival: Wheelchair Information source: Patient Notes: 29-year-old female presents to ED for complaint of headache started about an cassie r ago while she was at work. She states she vomited twice has some blurry vision. She states her menstrual cycles are very irregular and she only has a cycle for about an hour or 2 she is unsure when her last cycle was. She states she does not normally have headaches. We will get labs she states she got Tylenol and Zofran from the EMS when they brought her to the emergency room. The only past medical history she has is her gallbladder removal she has had 7 children vaginally. I have greeted and performed a rapid initial assessment of this patient. A comprehensive ED assessment and evaluation of the patient, analysis of test results and completion of medical decision making process will be conducted by an additional ED providers. TRAVEL OUTSIDE OF THE [place] IN LAST 30 DAYS: No - Related Data Allergies/Adverse Reactions: amoxicillin [Amoxicillin] Allergy (Unknown, Verified 10/18/19 20:59) rash/hives Penicillins Allergy (Unknown, Verified 10/18/19 20:59) rash/hives Past Medical History Pulmonary Medical History: Denies: Hx Tuberculosis Neurological Medical History: Denies: Hx Seizures Renal/ Medical History: Denies: Hx Peritoneal Dialysis Skin Medical History: Reports Hx MRSA Past Surgical History: Reports: Hx Cholecystectomy, Hx Hysterectomy - Immunizations Immunizations up to date: Yes Hx Diphtheria, Pertussis, Tetanus Vaccination: Yes - 04/2013 Physical Exam - Vital signs Vitals: Temp Pulse Resp BP Pulse Ox 98.6 F 78 18 140/79 H 100 10/18/19 20:27 10/18/19 20:27 10/18/19 20:27 10/18/19 20:27 10/18/19 20:27 Course - Vital Signs Vital signs: Temp Pulse Resp BP Pulse Ox 98.6 F 78 18 140/79 H 100 10/18/19 20:27 10/18/19 20:27 10/18/19 20:27 10/18/19 20:27 10/18/19 20:27 Doctor's Discharge - Discharge Referrals: KEVIN AMOS MD [Primary Care Provider] - Follow up as needed
[2019-10-18 23:30] LABS: ABSOLUTE EOSINOPHILS # (AUTO) 0.1 10^3/uL (0.0-0.6); ABSOLUTE LYMPHOCYTES (AUTO) 2.5 10^3/uL (0.5-4.7); ABSOLUTE MONOCYTES (AUTO) 0.4 10^3/uL (0.1-1.4); BASOPHILS % (AUTO) 0.3 % (0-2); EOSINOPHILS % (AUTO) 1.5 % (0-6); HEMATOCRIT 39.4 % (36.0-47.0); HEMOGLOBIN 12.9 g/dL (12.0-15.5); LYMPHOCYTES % (AUTO) 27.7 % (13-45); MEAN CORPUSCULAR HGB CONC 32.8 g/dL (32.0-36.0); MEAN CORPUSCULAR VOLUME 89 fl (80-97); MONOCYTES % (AUTO) 4.4 % (3-13); PLATELET COUNT 211 10^3/uL (150-450); RED BLOOD COUNT 4.44 10^6/uL (3.72-5.28); SEGMENTED NEUTROPHILS % (AUTO) 66.1 % (42-78); TOTAL CELLS COUNTED % (AUTO) 100 %; WHITE BLOOD COUNT 9.1 10^3/uL (4.0-10.5)
[2019-10-18 23:42] LABS: APPEARANCE,URINE CLOUDY; BILIRUBIN,URINE NEGATIVE (NEGATIVE); COLOR,URINE AMBER; GLUCOSE, URINE NEGATIVE (NEGATIVE); KETONES,URINE NEGATIVE (NEGATIVE); LEUKOCYTE ESTERASE,URINE TRACE (NEGATIVE); NITRITE,URINE NEGATIVE (NEGATIVE); PROTEIN,URINE 30 mg/dL (NEGATIVE); URINE SPECIFIC GRAVITY 1.033
[2019-10-18 23:49] LABS: ALBUMIN 4.4 g/dL (3.5-5.0); ALKALINE PHOSPHATASE 82 U/L (38-126); ANION GAP 7 (5-19); ASPARTATE AMINO TRANSFERASE 17 U/L (14-36); BILIRUBIN,TOTAL 0.3 mg/dL (0.2-1.3); BLOOD UREA NITROGEN 14 mg/dL (7-20); CALCIUM 9.2 mg/dL (8.4-10.2); CARBON DIOXIDE 25 mmol/L (22-30); CHLORIDE 108 mmol/L (98-107); GLUCOSE 93 mg/dL (75-110); POTASSIUM 4.3 mmol/L (3.6-5.0); TOTAL PROTEIN 7.6 g/dL (6.3-8.2)
[2019-10-19] MEDS ORDERED: BUTALB/ACETAMINOPHEN/CAFFEINE 1 TAB EACH PO ONE (04:13)
[2019-10-19] MEDS ORDERED: DIPHENHYDRAMINE HCL 25 MG CAPSULE PO ONE (04:14)
--- NOTE | 2019-10-19 04:49 | ER Document Report ---
HPI - HPI Time Seen by Provider: 10/18/19 21:03 Pain Level: 3 Notes: 29-year-old female patient presents emergency department chief complaint of headache and vomiting. Patient reports headache started yesterday morning. She states she vomited twice this afternoon so she left work early and came into the emergency department. She reports that her nausea has improved after EMS gave her nausea medication. She states she still has a headache. She does not have a history of headaches. She states that the headache came on gradually and had associated nausea with vomiting but no photophobia or phonophobia. Patient has not had fever, chills, she denies any neck stiffness. - ROS Systems Reviewed and Negative: Yes All other systems reviewed and negative - NEURO Neurology: REPORTS: Headache - GASTROINTESTINAL Gastrointestinal: REPORTS: Patient vomiting. DENIES: Black / Bloody Stools - REPRODUCTIVE LMP: NOT SEXUALLY ACTIVE Reproductive: DENIES: : Past Medical History - General Information source: Patient - Social History Smoking Status: Never Smoker Frequency of alcohol use: None Drug Abuse: None Family History: Reviewed & Not Pertinent Pulmonary Medical History: Denies: Hx Tuberculosis Neurological Medical History: Denies: Hx Seizures Renal/ Medical History: Denies: Hx Peritoneal Dialysis Skin Medical History: Reports Hx MRSA Past Surgical History: Reports: Hx Cholecystectomy, Hx Hysterectomy - Immunizations Immunizations up to date: Yes Hx Diphtheria, Pertussis, Tetanus Vaccination: Yes - 04/2013 Vertical Provider Document - CONSTITUTIONAL Notes: PHYSICAL EXAMINATION: GENERAL: Well-appearing, well-nourished and in no acute distress. HEAD: Atraumatic, normocephalic. EYES: Pupils equal round and reactive to light, extraocular movements intact, conjunctiva are normal. ENT: Nares patent, oropharynx clear without exudates. Moist mucous membranes. NECK: Normal range of motion, supple without lymphadenopathy LUNGS: Breath sounds clear to auscultation bilaterally and equal. No wheezes rales or rhonchi. HEART: Regular rate and rhythm without murmurs ABDOMEN: Soft, nontender, nondistended abdomen. No guarding, no rebound. No masses appreciated. Female : deferred Musculoskeletal: Normal range of motion, no pitting or edema. No cyanosis. NEUROLOGICAL: Cranial nerves grossly intact. Normal speech, normal gait. Normal sensory, motor exams PSYCH: Normal mood, normal affect. SKIN: Warm, Dry, normal turgor, no rashes or lesions noted. - INFECTION CONTROL TRAVEL OUTSIDE OF THE [place] IN LAST 30 DAYS: No Course - Re-evaluation Re-evalutation: Patient appears well, nontoxic, patient is concerned that she has to leave soon. Patient has had normal labs as ordered by triage provider. She is pending results on her head CT. She was given oral medicines for her symptoms. She reports her headache is improved. She will follow-up with her primary care provider. - Vital Signs Vital signs: Temp Pulse Resp BP Pulse Ox 98.6 F 67 16 130/87 H 99 10/19/19 01:41 10/19/19 01:41 10/19/19 01:41 10/19/19 01:41 10/19/19 01:41 - Laboratory Result Diagrams: 10/18/19 22:54 10/18/19 22:54 Laboratory results interpreted by me: 10/18/19 10/18/19 22:54 22:54 Chloride 108 H Urine Protein 30 H Urine Blood SMALL H Urine Urobilinogen 2.0 H Ur Leukocyte Esterase TRACE H Urine Ascorbic Acid 20 H - Diagnostic Test Radiology reviewed: Image reviewed, Reports reviewed - Normal CT head. Discharge - Discharge Clinical Impression: Headache Qualifiers: Headache type: unspecified Headache chronicity pattern: unspecified pattern Intractability: not intractable Qualified Code(s): R51 - Headache Condition: Stable Disposition: HOME, SELF-CARE Forms: Return to Work Referrals: KEVIN AMOS MD [Primary Care Provider] - Follow up as needed
[2019-10-19 04:59] VITALS: BP 136/68
--- NOTE | 2019-10-19 05:30 | RADIOLOGY REPORT (SQ) ---
CLINICAL HISTORY: headache, worst ever COMPARISON: None. TECHNIQUE: CT HEAD WITHOUT IV CONTRAST on 10/19/2019 4:13 AM CDT This exam was performed according to our departmental dose-optimization program, which includes automated exposure control, adjustment of the mA and/or kV according to patient size and/or use of iterative reconstruction technique. FINDINGS: There is no acute hemorrhage, mass effect or midline shift. Nam-white differentiation is preserved. There is no hydrocephalus. There is no significant volume loss for age. The calvarium is intact. Orbits and globes are unremarkable. The paranasal sinuses are clear. Mastoid air cells are clear. IMPRESSION: No acute intracranial findings.
== END 2019-10-19 05:00 | disposition home or self-care (01) ==
LOC: ER 19:53
DX: R51 Headache (principal); R11.2 Nausea with vomiting, unspecified
CPT/HCPCS: 99284; 36415; 84702; 85025; 80053; 81001; 70450; J3490 ×2

== ENCOUNTER 2020-02-05 11:51 | Emergency (ER) | payer MEDICAID ==
--- NOTE | 2020-02-05 12:42 | ER Document Report ---
ED GI/ - General Chief Complaint: Abdominal Pain Stated Complaint: ABDOMINAL PAIN Time Seen by Provider: 02/05/20 12:04 Primary Care Provider: KEVIN AMOS MD [Primary Care Provider] - Follow up as needed Notes: CHIEF COMPLAINT: Abdominal pain for 3 days HPI: 30-year-old female presenting for generalized abdominal pain for 3 days. Initially also had 2 episodes of vomiting no diarrhea. Patient with prior histo ry of cholecystectomy. Patient states pain has been constant since it began. No vaginal discharge or bleeding. No dysuria no fever ROS: See HPI - all other systems were reviewed and are otherwise negative Constitutional: no fever Eyes: no drainage, no blurred vision ENT: no runny nose, no sore throat Cardiovascular: no chest pain Resp: no SOB, no cough GI: + vomiting, no diarrhea, + abdominal pain : no dysuria Integumentary: no rash Allergy: no hives Musculoskeletal: no extremity pain or swelling Neurological: no numbness/tingling, no weakness MEDICATIONS: I agree with the patient medications as charted by the RN. ALLERGIES: I agree with the allergies as charted by the RN. PAST MEDICAL HISTORY/PAST SURGICAL HISTORY: Reviewed and agree as charted by RN. SOCIAL HISTORY: Reviewed and agree as charted by RN. FAMILY HISTORY: No significant familial comorbid conditions directly related to patient complaint EXAM: Reviewed vital signs as charted by RN. CONSTITUTIONAL: Alert and oriented and responds appropriately to questions. Well-appearing; well-nourished HEAD: Normocephalic; atraumatic EYES: PERRL; Conjunctivae clear, sclerae non-icteric ENT: normal nose; no rhinorrhea; moist mucous membranes; pharynx without lesions noted, no uvula edema or deviation, no tonsillar hypertrophy, phonation normal NECK: Supple without meningismus; non-tender; no cervical lymphadenopathy, no masses CARD: RRR; no murmurs, no clicks, no rubs, no gallops; symmetric distal pulses RESP: Normal chest excursion without splinting or tachypnea; breath sounds clear and equal bilaterally; no wheezes, no rhonchi, no rales, pulse oximetry 98% on room air not hypoxic ABD/GI: Obese, normal bowel sounds; non-distended; soft, mild generalized tenderness throughout the abdomen on palpation, no rebound, no guarding; no palpable organomegaly or masses. BACK: The back appears normal and is non-tender to palpation, there is no CVA tenderness EXT: Normal ROM in all joints; non-tender to palpation; no cyanosis, no effusions, no edema SKIN: Normal color for age and race; warm; dry; good turgor; no acute lesions noted NEURO: Moves all extremities equally; Motor and sensory function intact PSYCH: The patient's mood and manner are appropriate. Grooming and personal hygiene are appropriate. MDM: 30-year-old female generalized abdominal pain over 3 days time. Prior history of cholecystectomy. Patient did have a bowel movement today. Patient had 2 episodes of vomiting initially does not have any nausea or vomiting currently. Differential is large will obtain baseline screening labs, plan for CT to evaluate for surgical or infectious causation TRAVEL OUTSIDE OF THE [place] IN LAST 30 DAYS: No - Related Data Allergies/Adverse Reactions: amoxicillin [Amoxicillin] Allergy (Unknown, Verified 02/05/20 12:13) rash/hives Penicillins Allergy (Unknown, Verified 02/05/20 12:13) rash/hives Home Medications: MULTIVITAMIN Past Medical History - Social History Smoking Status: Never Smoker Chew tobacco use (# tins/day): No Frequency of alcohol use: None Drug Abuse: None Family History: Reviewed & Not Pertinent Patient has homicidal ideation: No Pulmonary Medical History: Denies: Hx Tuberculosis Neurological Medical History: Denies: Hx Seizures Renal/ Medical History: Denies: Hx Peritoneal Dialysis Skin Medical History: Reports Hx MRSA Past Surgical History: Reports: Hx Cholecystectomy, Hx Hysterectomy - Immunizations Immunizations up to date: Yes Hx Diphtheria, Pertussis, Tetanus Vaccination: Yes - 04/2013 Physical Exam - Vital signs Vitals: Temp Pulse Resp BP Pulse Ox 98.2 F 73 16 122/75 100 02/05/20 11:58 02/05/20 11:58 02/05/20 11:58 02/05/20 11:58 02/05/20 11:58 Course - Re-evaluation Re-evalutation: 02/05/20 13:55 : Female nurse 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 External genitalia normal. No skin lesions noted. Pelvic Exam: No active bleeding. No purulent discharge. Cervix appears normal. Mild CMT. No lesions or masses. Uterus normal size and non tender. Right/Left adnexa normal size and non tender. 02/05/20 16:27 discussed results at length with patient. Ultrasound shows 10 week 2 day IUP. patient also with UTI and trichomonas, aware that she has to have sexual partner notified and treated. Return instructions discussed. - Vital Signs Vital signs: Temp Pulse Resp BP Pulse Ox 98.2 F 73 16 122/75 100 02/05/20 11:58 02/05/20 11:58 02/05/20 11:58 02/05/20 11:58 02/05/20 11:58 - Laboratory Result Diagrams: 02/05/20 12:34 02/05/20 12:34 Laboratory results interpreted by me: 02/05/20 02/05/20 02/05/20 12:34 12:34 12:34 RDW 14.2 H Sodium 136.3 L Beta HCG, Quant Urine Protein 100 H Urine Blood SMALL H Urine Nitrite POSITIVE H Urine Urobilinogen 2.0 H Ur Leukocyte Esterase LARGE H Urine HCG, Qual POSITIVE H 02/05/20 12:34 RDW Sodium Beta HCG, Quant 89178.00 H Urine Protein Urine Blood Urine Nitrite Urine Urobilinogen Ur Leukocyte Esterase Urine HCG, Qual Discharge - Discharge Clinical Impression: Abdominal pain in female patient, Trichomonal infection Qualifiers: Weeks of gestation: 11 weeks Qualified Code(s): Z3A.11 - 11 weeks gestation of UTI (urinary tract infection) Qualifiers: Urinary tract infection type: acute cystitis Hematuria presence: with hematuria Qualified Code(s): N30.01 - Acute cystitis with hematuria Condition: Stable Disposition: HOME, SELF-CARE Additional Instructions: It was noted today on your work-up that you have a 10-week 2-day intrauterine . You also have a urinary tract infection. Take the Macrobid to treat this. Follow-up closely with [facility] for further evaluation and treatment call for appointment. It was also noted today that you are positive for trichomonas. This is considered a sexually transmitted disease make sure that you notify your sexual partners of need for treatment to avoid passing this infection on. Prescriptions: Nitrofurantoin Monohyd/M-Cryst [Macrobid 100 mg Capsule] 100 mg PO BID #14 cap Ondansetron [Zofran Odt 4 mg Tablet] 1 - 2 tab PO Q4H PRN #15 tab.rapdis PRN Reason: For Nausea/Vomiting Referrals: KEVIN AMOS MD [Primary Care Provider] - Follow up as needed
[2020-02-05] MEDS ORDERED: ONDANSETRON HCL INJ/PF 4 MG/2 ML SDV IV ONE (12:43)
[2020-02-05 13:01] LABS: ABSOLUTE EOSINOPHILS # (AUTO) 0.1 10^3/uL (0.0-0.6); ABSOLUTE LYMPHOCYTES (AUTO) 1.7 10^3/uL (0.5-4.7); ABSOLUTE MONOCYTES (AUTO) 0.5 10^3/uL (0.1-1.4); ABSOLUTE NEUT (AUTO) 6.8 10^3/uL (1.7-8.2); BASOPHILS % (AUTO) 0.3 % (0-2); EOSINOPHILS % (AUTO) 0.8 % (0-6); HEMOGLOBIN 13.2 g/dL (12.0-15.5); LYMPHOCYTES % (AUTO) 18.4 % (13-45); MEAN CORPUSCULAR HEMOGLOBIN 30.1 pg (27.0-33.4); MEAN CORPUSCULAR HGB CONC 33.8 g/dL (32.0-36.0); MEAN CORPUSCULAR VOLUME 89 fl (80-97); MONOCYTES % (AUTO) 5.8 % (3-13); PLATELET COUNT 221 10^3/uL (150-450); RED BLOOD COUNT 4.37 10^6/uL (3.72-5.28); RED CELL DISTRIBUTION WIDTH 14.2 % (11.5-14.0); SEGMENTED NEUTROPHILS % (AUTO) 74.7 % (42-78); TOTAL CELLS COUNTED % (AUTO) 100 %; WHITE BLOOD COUNT 9.1 10^3/uL (4.0-10.5)
[2020-02-05 13:19] LABS: APPEARANCE,URINE CLOUDY; BILIRUBIN,URINE NEGATIVE (NEGATIVE); COLOR,URINE YELLOW; GLUCOSE, URINE NEGATIVE (NEGATIVE); KETONES,URINE NEGATIVE (NEGATIVE); LEUKOCYTE ESTERASE,URINE LARGE (NEGATIVE); NITRITE,URINE POSITIVE (NEGATIVE); PROTEIN,URINE 100 mg/dL (NEGATIVE); URINE SPECIFIC GRAVITY 1.017
[2020-02-05 13:22] LABS: ALBUMIN 4.3 g/dL (3.5-5.0); ALKALINE PHOSPHATASE 97 U/L (38-126); ANION GAP 10 (5-19); ASPARTATE AMINO TRANSFERASE 26 U/L (14-36); BILIRUBIN,DIRECT 0.4 mg/dL (0.0-0.4); BILIRUBIN,TOTAL 0.7 mg/dL (0.2-1.3); BLOOD UREA NITROGEN 10 mg/dL (7-20); CALCIUM 9.7 mg/dL (8.4-10.2); CARBON DIOXIDE 23 mmol/L (22-30); CHLORIDE 103 mmol/L (98-107); GLUCOSE 85 mg/dL (75-110); POTASSIUM 4.8 mmol/L (3.6-5.0); TOTAL PROTEIN 7.9 g/dL (6.3-8.2)
[2020-02-05 13:59] LABS: T.VAGINALIS (WET MOUNT) TRICHOMONAS SEEN; WBCS (WET MOUNT) FEW WBCS SEEN; YEAST (WET MOUNT) NO YEAST SEEN
[2020-02-05] MEDS ORDERED: METRONIDAZOLE 500 MG TABLET PO ONE (14:38)
[2020-02-05 15:31] LABS: CHLAM PCR NOT DETECTED (NOT DETECT)
--- NOTE | 2020-02-05 15:32 | RADIOLOGY REPORT (SQ) ---
EXAM DESCRIPTION: U/S OB TRANSVAG W/DOPPLER IMAGES COMPLETED DATE/TIME: 02/05/2020 3:14 pm REASON FOR STUDY: abd pain preg COMPARISON: None. TECHNIQUE: Transvaginal and transabdominal static and realtime grayscale images acquired of the pelv is. Additional selected spectral and color Doppler images recorded. All images stored on PACs. bHC,000 CLINICAL DATES: Unknown LIMITATIONS: Maternal body habitus. FINDINGS: FETUS: Single Living intrauterine . ULTRASOUND EGA: 10 weeks 2 days ULTRASOUND ENID: 08/31/2020 EFW: Not applicable less than 20 weeks. CRL: 3.4 cm FHR: 173 beats per minute. SURVEY: Too early to assess. AMNIOTIC FLUID: Adequate amount. PLACENTA: Not yet developed due to early gestation. SUBCHORIONIC BLEED: No SIZE OF BLEED: Not applicable. UTERUS: No masses. No anomalies. CERVICAL LENGTH: 3.3 cm. Closed. RIGHT ADNEXA: Ovary not seen. No adnexal free fluid. No adnexal masses. LEFT ADNEXA: Ovary not seen. No adnexal free fluid. No adnexal masses. FREE FLUID: None. OTHER: No other significant finding. IMPRESSION: LIVING INTRAUTERINE . EGA 10 weeks 2 days. Trimester of : First trimester - 0 to 13 weeks. TECHNICAL DOCUMENTATION: JOB ID: [id number] 2010 [employer]- All Rights Reserved rev Reading location - IP/workstation name: [email or web address]
[2020-02-05] MEDS ORDERED: CEFTRIAXONE 1 GM/D5W RTU 1 GM/50 ML RTUPB IV ONE (16:26)
[2020-02-05 17:22] VITALS: BP 120/78
== END 2020-02-05 17:35 | disposition home or self-care (01) ==
LOC: ER 11:51
DX: O23.11 Infections of bladder in pregnancy, first trimester (principal); O98.811 Other maternal infectious and parasitic diseases complicating pregnancy, first trimester; A59.9 Trichomoniasis, unspecified; O21.9 Vomiting of pregnancy, unspecified; O26.891 Other specified pregnancy related conditions, first trimester; R10.84 Generalized abdominal pain; Z79.899 Other long term (current) drug therapy; Z88.0 Allergy status to penicillin; Z3A.11 11 weeks gestation of pregnancy
CPT/HCPCS: 99285; 96375; 96365; 86900; 86901; 36415; 87210; 84702; 83690; 85025; 81025; 80053; 81001; 87491; 87591; 76817; 93976; J2405; J3490; J0696